=== PATIENT | female | born 2000 | race Caucasian/White ===

== ENCOUNTER → 2022-02-12 | Outpatient (CLI) | payer OTHER, SELFPAY ==
[2022-02-12 17:28] LABS: Absolute Lymphocyte Count 1.78 X10^3/uL (0.83-4.51); Absolute Neutrophil Count 6.9 X10^3/uL (2.0-7.7); Basophil# 0.02 X10^3/uL; Basophil% 0.2 % (0-1); Eosinophils% 2.1 % (0-5); Hematocrit 32.3 % (37-47); Hemoglobin 11.6 g/dL (12.0-15.0); Lymphocyte # 1.78 X10^3/ul (0.83-4.51); Lymphocyte % 18.8 % (19-41); Mean Corp Hgb Conc 35.9 g/dL (32-36); Mean Platelet Vol. 10.4 fl (6.2-12.0); Monocyte# 0.52 X10^3/uL; Monocyte% 5.5 % (0-10); NRBC Flagged by Analyzer 0 % (0-5); Neutrophil # 6.87 X10^3/uL (2.7-7.7); Neutrophil % 72.8 % (47-70); Platelet Count 228 K/mm3 (150-450); RBC Distribution Width CV 12.8 % (11.6-14.6); RBC Distribution Width SD 41.6 fl (35.1-43.9); Red Blood Count 3.63 M/mm3 (4.2-5.4); White Blood Count 9.5 K/mm3 (4.4-11.0)
[2022-02-12 20:50] LABS: HIV - WCH Non-Reactive (Nonreactive); Hepatitis B Surface Antigen Non-Reactive (Nonreactive); Hepatitis C Antibody Non-Reactive (Nonreactive); Rubella IgG Reactive (Nonreactive); Syphilis Antibodies Non-reactive
[2022-02-12 21:59] LABS: Chlamydia Trachomatis by PCR Negative (Negative); Neisserai gonorrhoeae by PCR Negative (Negative); Probe Check PASS; Sample Adequacy Control PASS; Specimen Processing Control PASS
[2022-02-14 16:26] LABS: V-Zoster IgG (Immunity) 1446 index (Immune >165)
[2022-02-21 21:08] LABS: HPV Reflexed? NOT INDICATED
== END | disposition home or self-care (01) ==
LOC: WOBLAB 17:06
PROVIDERS: Visit Provider Student in an Organized Health Care Education/Training Program
DX: Z34.81 Encounter for supervision of other normal pregnancy, first trimester (principal)
CPT/HCPCS: 36415; 85025; 86703; 86762; 86780; 86787; 86803; 87086; 87088; 87340; 87491; 87591; 88175; G0145

== ENCOUNTER → 2022-03-15 | Outpatient (CLI) | payer OTHER, SELFPAY ==
[2022-03-15 10:14] LABS: Hematocrit 34.8 % (37-47); Hemoglobin 11.6 g/dL (12.0-15.0); Mean Corp Hgb Conc 33.3 g/dL (32-36); Mean Corpuscular Hgb 31.4 pg (27.0-32.0); Mean Corpuscular Volume 94.1 fL (81-99); Mean Platelet Vol. 10.9 fl (6.2-12.0); Platelet Count 213 K/mm3 (150-450); RBC Distribution Width CV 13.2 % (11.6-14.6); RBC Distribution Width SD 45.1 fl (35.1-43.9); White Blood Count 9.2 K/mm3 (4.4-11.0)
[2022-03-15 10:45] LABS: Glucose Challenge Gest 1H 50g 107 mg/dL (70-140)
== END | disposition home or self-care (01) ==
PROVIDERS: Visit Provider Student in an Organized Health Care Education/Training Program
DX: Z34.82 Encounter for supervision of other normal pregnancy, second trimester (principal)
CPT/HCPCS: 36415; 82950; 85027

== ENCOUNTER → 2022-05-01 | Outpatient (CLI) | payer SELFPAY ==
--- NOTE | 2022-05-01 14:49 | VDLE_ITS ---
Reason For Study: Pain Procedure LEFT This is a venous duplex using B-mode, color GSV is normal. flow and spectral Doppler. CFV is compressible, spontaneous, phasic, Exam performed in department. competent, and demonstrates normal A preliminary report was called and/or faxed augmentation. to Dr. Bernice Lazaro. FV is compressible, spontaneous, phasic, competent and demonstrates normal augmentation. POP V is compressible, spontaneous, phasic, competent and demonstrates normal augmentation. T/P Trunk is compressible. PTV is compressible. LT PerV is compressible. Thrombus filled varicose veins noted at the knee. VL/Venous Duplex US, Unilateral Interpretation Summary Acute superficial vein thrombosis is noted in left leg varicose veins Deep veins of the left lower extremity are patent and compressible segmentally. There is no evidence of left lower extremity deep vein thrombosis. The left great saphenous vein audrey ears patent and compressible segmentally. Ordering Physician: Bernice Lazaro Referring Physician: Yennifer Samson Performed By: Julia Chaidez RVT
== END | disposition home or self-care (01) ==
PROVIDERS: PCP Nurse Practitioner Family; Visit Provider Student in an Organized Health Care Education/Training Program
DX: I83.812 Varicose veins of left lower extremity with pain (principal)
CPT/HCPCS: 93971

== ENCOUNTER → 2022-06-03 | Outpatient (CLI) | payer OTHER, SELFPAY ==
[2022-06-03 15:38] LABS: Absolute Lymphocyte Count 1.48 X10^3/uL (0.83-4.51); Absolute Neutrophil Count 8.4 X10^3/uL (2.0-7.7); Basophil# 0.03 X10^3/uL; Basophil% 0.3 % (0-1); Eosinophil# 0.09 X10^3/uL; Eosinophils% 0.8 % (0-5); Hematocrit 33.9 % (37-47); Hemoglobin 11.2 g/dL (12.0-15.0); Lymphocyte # 1.48 X10^3/ul (0.83-4.51); Lymphocyte % 13.8 % (19-41); Mean Corpuscular Hgb 30.6 pg (27.0-32.0); Mean Corpuscular Volume 92.6 fL (81-99); Mean Platelet Vol. 10.5 fl (6.2-12.0); Monocyte# 0.71 X10^3/uL; Monocyte% 6.6 % (0-10); NRBC Flagged by Analyzer 0 % (0-5); Neutrophil # 8.38 X10^3/uL (2.7-7.7); Neutrophil % 77.9 % (47-70); Platelet Count 228 K/mm3 (150-450); RBC Distribution Width SD 43.7 fl (35.1-43.9); Red Blood Count 3.66 M/mm3 (4.2-5.4); White Blood Count 10.8 K/mm3 (4.4-11.0)
[2022-06-03 16:08] LABS: Syphilis Antibodies Non-reactive
== END | disposition home or self-care (01) ==
PROVIDERS: PCP Nurse Practitioner Family; Visit Provider Student in an Organized Health Care Education/Training Program
DX: Z34.83 Encounter for supervision of other normal pregnancy, third trimester (principal); Z36.85 Encounter for antenatal screening for Streptococcus B
CPT/HCPCS: 36415; 85025; 86780; 87081

== ENCOUNTER 2022-06-22 04:32 | Inpatient (IN) | payer SELFPAY, OTHER ==
[2022-06-22] VITALS (19 sets, daily range): BP systolic 99–127; BP diastolic 48–64; PULSE 64–90; RESP 16; TEMP 36.3–37.2; O2SAT 97–100; BMI 27.8
[2022-06-22 05:05] LABS: Absolute Neutrophil Count 8.4 X10^3/uL (2.0-7.7); Basophil# 0.03 X10^3/uL; Basophil% 0.3 % (0-1); Eosinophil# 0.06 X10^3/uL; Eosinophils% 0.6 % (0-5); Hemoglobin 11.8 g/dL (12.0-15.0); Lymphocyte % 12.3 % (19-41); Mean Corp Hgb Conc 32.8 g/dL (32-36); Mean Corpuscular Hgb 30.5 pg (27.0-32.0); Mean Platelet Vol. 10.8 fl (6.2-12.0); Monocyte# 0.63 X10^3/uL; NRBC Flagged by Analyzer 0 % (0-5); Neutrophil # 8.44 X10^3/uL (2.7-7.7); Neutrophil % 80.1 % (47-70); Platelet Count 195 K/mm3 (150-450); RBC Distribution Width CV 13.2 % (11.6-14.6); RBC Distribution Width SD 44.4 fl (35.1-43.9); Red Blood Count 3.87 M/mm3 (4.2-5.4); White Blood Count 10.5 K/mm3 (4.4-11.0)
[2022-06-22] MEDS: Lactated Ringers 1,000 ML 50 ML IV (05:06)
[2022-06-22 05:45] LABS: Syphilis Antibodies Non-reactive
[2022-06-22] MEDS: Oxytocin 10 UNITS/ML Vial IM (06:52)
[2022-06-22] MEDS: Oxytocin 15 Units/NS 250ml 15 UNITS/250 ML IV.SOLN 83 UNITS IV (06:52)
--- NOTE | 2022-06-22 07:09 | HP.PCM.OB_ITS ---
HPI - General General Date of Admission: 06/22/22 HPI Narrative MARKUS JACKSON, is a 21 y/o @ 39 weeks 3 days who presents to L&D in active labor. 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 She has a history or prior vaginal delivery in [place] at 34 weeks. Maternal Data Information JIN Calculator Estimated Delivery Date Method Current WG Current Estimate 06/27/22 LMP (Certain) 39w 2d Final JIN Source: LMP Gestational age: 39 weeks 2 days PFSH PFS Medical History (Updated 06/22/22 @ 07:[address] Mone Serna DO) Superficial varicosities Home Medications aspirin 81 mg capsule 81 mg PO DAILY 06/22/22 [History Last Taken 06/21/22] [id number] 1 mg tablet 1 tab PO DAILY 06/22/22 [History Last Taken 06/21/22] Allergy/AdvReac Type Severity Reaction Status Date / Time No Known Allergies Allergy Verified 06/22/22 04:41 no significant family history Surgical History (Updated 06/22/22 @ 07:[address] Mone Serna DO) H/O cardiac radiofrequency ablation History of surgery Social History Smoking Status: Never smoker Prior Cardiac Testing/Procedures Prior Cardiac Testing/Procedures: Echocardiogram History 2 Elective abortions 0 Hx Para 1 Spontaneous abortions 0 Hx # Term Pregnancies 0 Ectopic pregnancies 0 Hx # Pregnancies 1 Multiple births 0 # of living children 1 Past Pregnancies Del. Date Name GA/Weeks Outcome Route Bth Weight Infant Gen Labor Lgth Anesthesia Del Locatn Provider FOB Unknown Linda 34 live - 5lbs 8oz Female NST FHR Rate Baby A Baseline: 125 Variability:: Moderate Accelerations:: 15 x 15 Decelerations:: None FHR Category:: Category I ROS Constitutional Constitutional: Denies change in weight, fatigue, fever(s), headache(s), poor appetite or weakness Eyes Eyes: Denies blurry vision, change in vision, seeing flashes or spots in vision ENT HEENT: Denies dizziness, headache(s), loss taste/smell or sore throat Cardiovascular Cardiovascular: Denies chest pain, dizziness, dyspnea, irregular heart rhythm, leg edema, palpitations, rapid heart rate or vomiting Respiratory/Chest Respiratory/Chest: Denies chest tightness, cough, dyspnea or breast pain Gastrointestinal Gastrointestinal: Denies abdominal pain, anorexia, constipation, cramping, diarrhea, hemorrhoids, vomiting or weight changes Genitourinary Genitourinary: Denies dysuria, flank pain, genital lesions, genital pain, urinary frequency or urinary urgency Musculoskeletal Musculoskeletal: Denies back pain, difficulty walking, joint pain, limited range of motion, muscle cramps or numbness Integumentary Integumentary: Denies lesions or unusual bruising Neurologic Neurologic: Denies abnormal movements, abnormal speech, dizziness, numbness, seizure-like activity or syncope Psychiatric Psychiatric: Denies anxiety, behavioral changes, change in appetite, change in libido, cognitive impairment, confusion, depression, difficulty concentrating, hallucinations or suicidal thoughts Endocrine Endocrinology: Denies excessive sweating, polydipsia or polyuria Hematologic/Lymphatic Hematologic/Lymphatic: Denies easy bleeding, easy bruising or lymphadenopathy Allergic/Immunologic Allergic/Immunologic: Denies itchy eyes, lip swelling, seasonal rhinorrhea, rhinitis, throat swelling, tongue swelling, eczemia, wheezing or asthma Vital Signs Vital Signs Vital Signs: 06/22/22 04:28 06/22/22 04:28 06/22/22 04:29 Temperature Temperature Source Pulse Rate 64 Blood Pressure 114/56 L BP Systolic 114 BP Diastolic 56 Pulse Ox 99 06/22/22 04:29 06/22/22 04:29 06/22/22 04:29 Temperature 97.4 F L Temperature Source Temporal Pulse Rate 72 Blood Pressure BP Systolic BP Diastolic Pulse Ox 06/22/22 05:49 06/22/22 05:50 06/22/22 05:50 Temperature Temperature Source Temporal Pulse Rate 68 Blood Pressure 99/54 L BP Systolic 99 BP Diastolic 54 Pulse Ox 06/22/22 05:49 06/22/22 05:49 06/22/22 07:05 Temperature 97.3 F L Temperature Source Pulse Rate Blood Pressure 120/62 BP Systolic 120 BP Diastolic 62 Pulse Ox 97 06/22/22 07:05 Temperature Temperature Source Pulse Rate 78 Blood Pressure BP Systolic BP Diastolic Pulse Ox Weight Weight: 156 lb 15.506 oz Body Mass Index (BMI) 27.8 Physical Exam Const alert, oriented x3, no apparent distress and healthy appearing General Appearance: cooperative; Negative for anxious HEENT normocephalic Face and Sinus: normal facial exam Eyes EOMs intact bilaterally and no scleral icterus General Eye: normal appearance of both eyes Neck full ROM and supple Lymph Lymphatic: no lymphadenopathy noted Chest Chest: abnormal inspection of the chest Resp normal respiratory effort Effort and Inspection: able to speak in complete sentences Cardio regular rate GI soft to palpation and non-tender Inspection: gravid Palpation: soft; Negative for tender external exam normal Amniotic Fluid: ROM+plus Back/Spine no CVA tenderness Extremity normal to inspection, full ROM and no clubbing, cyanosis or edema General Extremity: Negative for calf tenderness or edema Skin Lesions: no lesions Rashes: no rashes Psych mental status grossly normal Labs Labs Labs: Blood Type A NEGATIVE Antibody Screen NEGATIVE Hct 36.0 % (37-47) L Hgb 11.8 g/dL (12.0-15.0) L Syphilis Total Ab Non-reactive VZV IgG Antibody 1446 index (Immune >165) Rubella IgG Antibody Reactive (Nonreactive) Hep Bs Antigen Non-Reactive (Nonreactive) HIV 1&2 Antibody Non-Reactive (Nonreactive) Glucose 1 Hr 50 gm 107 mg/dL (70-140) Assessment & Plan (1) History of surgery: COMMENT: appendectomy (2) H/O cardiac radiofrequency ablation: COMMENT: for SVT in 2016 (3) Superficial varicosities: (4) Active labor at term: PLAN: Plan Patient presents IAL, plan expectant management for , pitocin/AROM PRN if needed. Pain management: none . GBS negative, . Management of any complications: none I have reviewed the [facility] and made any clinically relevant updates.
--- NOTE | 2022-06-22 07:18 | OP.PCM_ITS ---
Assessment & Plan (1) Active labor at term: Maternal Data Information JIN Calculator Estimated Delivery Date Method Current WG Current Estimate 06/27/22 LMP (Certain) 39w 2d Final JIN Source: LMP Gestational age: 39 weeks 2 days Vaginal Delivery Maternal Presentation Maternal Presentation: Active Labor Operative Information Date of Procedure: 06/22/22 Pre-Operative Diagnosis: 21 y/o @ 39 weeks 2 days, active labor Post-Operative Diagnosis: 21 y/o @ 39 weeks 2 days, active labor Surgery / Procedure Performed: Spontaneous Vaginal Delivery Type of Anesthesia: None Estimated Blood Loss: 100cc Time of Delivery: 06:44 Findings Description of Procedure: Patient began pushing and delivered the head in the MARY presentation. The head was delivered atraumatically and a loose nuchal cord ?1 was identified and easily reduced over the infant's head. The anterior and posterior shoulders delivered without complication followed by the rest of the infant and the was placed on the maternal abdomen. Delayed cord clamping was employed for approximately 60 seconds. Cord was clamped and cut and gentle traction was applied to the cord and the placenta delivered spontaneously immediately following it was noted to be intact with three-vessel cord. The perineum and vagina were inspected and noted to have a 1st degree perineal laceration. the patient was injected with lidocaine and the repair was performed using a 2-0 vicryl. EBL was 100 cc. Patient and tolerated delivery well. Baby Boy Austin Presentation: Vertex Amniotic Membrane Rupture Type: Artificial Amniotic Fluid Description: Clear Placental Delivery Description: Spontaneous Placenta Disposition: [facility] Cord Vessel Description: 3 Vessels Cord Entanglement: Around neck x 1, loose Nuchal Cord Compression: Without compression Infant A Gender: Male (1 minute): 8 (5 minute): 9 Delayed Cord Clamping: Yes Post Vaginal Delivery Medications Given After Delivery: IV Pitocin and IM Pitocin Episiotomy Description: None Laceration: 1st degree Complication Complications: None Multi Select Codes Urinary/Genital Urinary/Genital CPT Codes: 90852 Vaginal Delivery [facility]
--- NOTE | 2022-06-22 07:21 | PCM.DC ---
Discharge Instructions Diet Discharge Diet: No restrictions Activity Discharge Activity: Return to Normal Activity, May Not Drive (while taking narcotic pain medications.) and May Shower May resume sexual activity in: 4-6 weeks Dressing / Incision Call your doctor if your incision/area has: Continuous Slow Oozing, Sudden Increased Bleeding, Increased Pain/ Swelling, Increased Redness and Foul Smelling Discharge Follow Up Care Please Follow Up With: Bernice Lazaro DO When: Call to make an appointment with your doctor in 6 weeks. Test Results: Test results from this visit will be discussed in further detail at your follow-up appointment, if applicable. Discharge Plan Admission Admit Date/Time: 06/22/22 04:32 Attending Provider: Mone Serna Primary Care Provider: Yennifer Samson NP Discharge Orders/Prescriptions Prescriptions: No Action 1 mg Tablet 1 tab PO DAILY aspirin 81 mg Capsule 81 mg PO DAILY Referrals / Follow Up: Yennifer Samson NP, [employer] [Primary Care Provider] -
[2022-06-22] MEDS: Acetaminophen 500 MG Tablet 1000 MG PO (13:19)
[2022-06-23 00:01] VITALS: BP 117/70; PULSE 69; RESP 16; TEMP 36.6
[2022-06-23 04:32] VITALS: BP 121/60; PULSE 74; RESP 16; TEMP 36.8
[2022-06-23 08:39] VITALS: BP 119/53; PULSE 60; RESP 16; TEMP 36.3; O2SAT 99
--- NOTE | 2022-06-23 09:48 | PCM.PN.OB ---
Subjective Subjective Patient doing well without complaints. Tolerating PO. Ambulating and voiding without difficulty. Feeding well. Denies chest pain, shortness of breath, calf pain/swelling, fevers, chills, lightheadedness. Her only complaint is pain at her superficial clot behind her inner left knee. She states that it really has not changed. Objective Data Objective Data Vital Signs: Vital Signs Temp Pulse Resp BP Pulse Ox O2 Del Method 97.4 F L 60 16 119/53 L 99 Room Air 06/23/22 08:39 06/23/22 08:39 06/23/22 08:39 06/23/22 08:39 06/23/22 08:39 06/23/22 08:39 Oxygen Delivery Method Room Air Weight: 156 lb 15.506 oz Body Mass Index (BMI) 27.8 Intake & Output: Intake and Output for Last 24 Hours 06/21/22 06/22/22 06/23/22 23:59 23:59 23:59 Intake Total 251.67 / 251.67 Output Total 1300 / 1300 Balance -1048.33 / -1048.33 Lab / Micro Data Result Diagrams: 06/22/22 04:50 ROS Constitutional Constitutional: Denies chills, fatigue, fever(s), poor appetite or weakness Eyes Eyes: Denies blurry vision, change in vision, seeing flashes or spots in vision ENT HEENT: Denies dizziness, headache(s), loss taste/smell or sore throat Cardiovascular Cardiovascular: Denies chest pain, dizziness, dyspnea, irregular heart rhythm, palpitations or rapid heart rate Respiratory/Chest Respiratory/Chest: Denies chest tightness, cough, dyspnea or breast pain Gastrointestinal Gastrointestinal: Denies abdominal pain, constipation or vomiting Genitourinary Genitourinary: Denies dysuria or flank pain Musculoskeletal Musculoskeletal: Denies difficulty walking, joint pain, limited range of motion or numbness Neurologic Neurologic: Denies abnormal movements, abnormal speech, dizziness, numbness, seizure-like activity or syncope Psychiatric Psychiatric: Denies anxiety, behavioral changes, change in appetite, confusion, depression or suicidal thoughts Physical Exam Const alert, oriented x3 and no apparent distress General Appearance: cooperative and comfortable Resp normal respiratory effort Cardio regular rate GI normal to inspection, nondistended, normoactive bowel sounds GI Narrative: uterus is firm below umbilicus Palpation: soft Back/Spine no CVA tenderness and thoraco-lumbar ROM normal Extremity normal to inspection, no clubbing, cyanosis or edema, no calf tenderness and no pedal edema Psych mental status grossly normal, thought process normal, cooperative, affect normal, speech normal, activity/motor behavior normal, denies homicidal ideation and denies suicidal ideation Assessment & Plan (1) History of surgery: COMMENT: appendectomy (2) Superficial varicosities: (3) H/O cardiac radiofrequency ablation: COMMENT: for SVT in 2016 PLAN: Plan s/p PPD # 1 1. routine post delivery care 2. breast feeding- support given 3. rh positive 4. rubella immune 5. continue baby asa and heat at the superficial clot site. 6. dc to home and follow up with Dr. Lazaro in 6 weeks or sooner as needed
[2022-06-23 14:45] VITALS: BP 116/56; PULSE 79; RESP 16; TEMP 36.4; O2SAT 98
== END 2022-06-23 15:37 | disposition home or self-care (01) | DRG 807 ==
LOC: WPOUT 04:32 → WP 04:32
PROVIDERS: Admitting Provider Obstetrics & Gynecology; PCP Nurse Practitioner Family; Visit Provider Obstetrics & Gynecology
DX: O70.0 First degree perineal laceration during delivery (principal); Z37.0 Single live birth; I83.90 Asymptomatic varicose veins of unspecified lower extremity; O69.2XX0 Labor and delivery complicated by other cord entanglement, with compression, not applicable or unspecified; O69.81X0 Labor and delivery complicated by cord around neck, without compression, not applicable or unspecified; Z79.82 Long term (current) use of aspirin; Z3A.39 39 weeks gestation of pregnancy
CPT/HCPCS: 59025; 59050; 85025; 86780; 86850; 86900; 86901; 99221; J7120; G0378

== ENCOUNTER → 2023-01-27 | Outpatient (CLI) | payer SELFPAY, OTHER | END | disposition home or self-care (01) | PROVIDERS: PCP Nurse Practitioner Family; Visit Provider Advanced Practice Midwife | DX: O09.90 Supervision of high risk pregnancy, unspecified, unspecified trimester (principal); Z3A.00 Weeks of gestation of pregnancy not specified | CPT/HCPCS: 87086; 87088; 87491; 87591 ==

== ENCOUNTER → 2023-02-18 | Outpatient (CLI) | payer SELFPAY, OTHER ==
--- NOTE | 2023-02-18 07:46 | US_ITS ---
EXAM: US SECOND OR THIRD TRIMESTER , TRANSABDOMINAL CLINICAL INDICATION: Anatomy US TECHNIQUE: Transabdominal obstetrical ultrasound of the maternal pelvis and a second or third trimester with image documentation. COMPARISON: No relevant prior studies available. FINDINGS: FETUS: Single fetus. SA weight is 273 g. HEART RATE: cardiac rate is 157 bpm. PRESENTATION: Cephalic presentation. PLACENTA: Posterior placenta. No placenta previa. No abruption. AMNIOTIC FLUID: Amniotic fluid volume is normal. ANATOMY: Facial anatomy not well seen. Normal intracranial structures. Facial structures not well seen due to position. Normal four-chamber heart, normal diaphragm, normal stomach, normal abdominal wall, normal cord insertion, normal three-vessel cord, normal kidneys, normal bladder. Spinal structures appear normal. No abnormality of the upper or lower extremities. BIOMETRICS GESTATIONAL AGE: Clinical gestational age is 19 weeks 5 days. Gestational age by measurements is 19 weeks 3 days. JIN: Clinical JIN is July 10, 2023. EFW: 16th percentile for the estimated weight. BPD: Biparietal diameter is 4.5 cm. HC: Head circumference is 17.1 cm. AC: Abdominal circumference is 13.9 cm. FL: Femur length is 2.8 cm. MATERNAL: UTERUS: Normal. No myometrial mass. CERVIX: Cervix is closed measuring 3.8 cm in length. ADNEXA: Normal. No adnexal masses. FREE FLUID: None. US/OB Anatomy w/ Transvaginal IMPRESSION: Single live second trimester intrauterine gestation. No anatomical abnormalities are identified. Electronically Signed: Lazarus Mcneill MD at 16:59 EST ,
[2023-02-18 09:38] LABS: Absolute Lymphocyte Count 1.36 X10^3/uL (0.83-4.51); Absolute Neutrophil Count 7.5 X10^3/uL (2.0-7.7); Basophil# 0.02 X10^3/uL; Basophil% 0.2 % (0-1); Eosinophil# 0.16 X10^3/uL; Eosinophils% 1.7 % (0-5); Hematocrit 33.7 % (37-47); Hemoglobin 11.2 g/dL (12.0-15.0); Lymphocyte # 1.36 X10^3/ul (0.83-4.51); Lymphocyte % 14.4 % (19-41); Mean Corp Hgb Conc 33.2 g/dL (32-36); Mean Corpuscular Hgb 30.6 pg (27.0-32.0); Mean Corpuscular Volume 92.1 fL (81-99); Mean Platelet Vol. 10.5 fl (6.2-12.0); Monocyte# 0.43 X10^3/uL; Monocyte% 4.5 % (0-10); NRBC Flagged by Analyzer 0 % (0-5); Neutrophil # 7.45 X10^3/uL (2.7-7.7); Neutrophil % 78.7 % (47-70); Platelet Count 196 K/mm3 (150-450); RBC Distribution Width CV 13.5 % (11.6-14.6); RBC Distribution Width SD 44.9 fl (35.1-43.9); Red Blood Count 3.66 M/mm3 (4.2-5.4); White Blood Count 9.5 K/mm3 (4.4-11.0)
[2023-02-18 10:46] LABS: HIV - WCH Non-Reactive (Nonreactive); Hepatitis B Surface Antigen Non-Reactive (Nonreactive); Hepatitis C Antibody Non-Reactive (Nonreactive); Rubella IgG Reactive (Nonreactive); Syphilis Antibodies Non-reactive
== END | disposition home or self-care (01) ==
PROVIDERS: PCP Nurse Practitioner Family; Referring Provider Advanced Practice Midwife; Visit Provider Advanced Practice Midwife
DX: O09.90 Supervision of high risk pregnancy, unspecified, unspecified trimester (principal)
CPT/HCPCS: 36415; 76805; 76817; 85025; 86703; 86762; 86780; 86803; 86850; 86900; 86901; 87340

== ENCOUNTER 2023-04-08 22:31 | Emergency (ER) | payer OTHER, SELFPAY ==
[2023-04-08 22:32] VITALS: BP 116/69; PULSE 87; RESP 16; TEMP 36.3; O2SAT 100; BMI 25.4
[2023-04-08 22:35] VITALS: BP 116/69; PULSE 87; RESP 16; TEMP 36.3; O2SAT 100
--- NOTE | 2023-04-08 22:42 | US_ITS ---
STUDY: VENOUS DOPPLER ULTRASOUND - LEFT LOWER EXTREMITY REASON FOR EXAM: Female, 22 years old. LT MEDIAL LEG REDNESS PAIN AND SWELLING TECHNIQUE: Ultrasound evaluation of the deep vein system to include alvarado-scale imaging and compression was performed. Alvarado-scale imaging and Doppler sonographic evaluation, including duplex spectral analysis and qualitative color flow sonography, was performed. COMPARISON: None. FINDINGS: Common Femoral Vein: Normal compression, spontaneity and augmentation. Normal color Doppler. Common Femoral Vein/Greater Saphenous Junction: Normal compression, spontaneity and augmentation. Normal color Doppler. Deep Femoral Vein: Normal compression, spontaneity and augmentation. Normal color Doppler. Femoral Proximal: Normal compression, spontaneity and augmentation. Normal color Doppler. Femoral Middle: Normal compression, spontaneity and augmentation. Normal color Doppler. Femoral Distal: Normal compression, spontaneity and augmentation. Normal color Doppler. Popliteal Vein: Normal compression, spontaneity and augmentation. Normal color Doppler. Posterior Tibial Vein: Normal compression, spontaneity and augmentation. Normal color Doppler. Peroneal Vein: Normal compression, spontaneity and augmentation. Normal color Doppler. There is no demonstrated deep venous thrombosis. Along the medial aspect of the left knee region there is diffuse superficial soft tissue swelling with the area of superficial vein revealing thrombosis suggestive of thrombophlebitis. US/Venous Duplex Imag/Limited/Uni IMPRESSION: No ultrasonographic evidence of deep venous thrombosis involving the left lower extremity. Superficial thrombophlebitis involving the medial aspect of the left knee. Electronically Signed: Citlalli Padilla MD at 23:39 EST ,
--- OUTSIDE RECORDS SUMMARY | 2023-04-08 22:43 | XMS RPT_ITS | CCD ---
Author Name Unknown Address [address] [place] [address] Organization [facility] Care Team Providers Care Rn Transport Name Role Phone TOMMY SHARP Consulting Unavailable KAMILLA ALTMAN MD Admitting Unavailable KAMILLA ALTMAN MD Attending Unavailable AKMILLA ALTMAN MD Primary Care Unavailable PROVIDER, UNKNOWN Consulting Unavailable PROVIDER, UNKNOWN Consulting Unavailable PROVIDER, UNKNOWN Consulting Unavailable JEROD ALTMAN Admitting Unavailable JEROD ALTMAN Attending Unavailable JEROD ALTMAN Primary Care Unavailable HANNAH SHARPRY T Consulting Unavailable PROVIDER, UNKNOWN Consulting Unavailable PROVIDER, UNKNOWN Consulting Unavailable PROVIDER, UNKNOWN Consulting Unavailable NALINI SHARPCHARY Paulino Admitting Unavailable LILA TOMMY Paulino Attending Unavailable LILA TOMMY T Primary Care Unavailable SHARP, TOMMY T Consulting Unavailable PROVIDER, UNKNOWN Consulting Unavailable PROVIDER, UNKNOWN Consulting Unavailable PROVIDER, UNKNOWN Consulting Unavailable LOUIS AVILES, JAZZMINE Najera Unavailable [phone] DIANNE GAMBLE Unavailable HILARIO Unavailable Unavailable ORTHOPEDICS, GENERAL Unavailable Unavailable Natalia Mckay RN Unavailable Unavailable TOMMY SHARP MD Unavailable [phone] JHON ADAMES MD Unavailable [phone] HANS DUMONT RN Unavailable Unavailable Stacy Altman Unavailable Unavailable He Goodrich Unavailable Unavailable DEMAR GOODRICHISTIN Unavailable Unavailable Deny Suero Unavailable Unavailable Marielle RN, Chcia Unavailable Unavaila tiesha Sanders RN, Augusta Unavailable Unavailable Unavailable Unavailable Medications Current Medications Medication Drug Class(es) Dates Sig (Normalized) Sig (Original) docusate sodium 100 mg oral capsule (1 source) Start: 04-27-2020 take 1 capsule by mouth twice daily as needed Colace 100 MG Oral Capsule ; 1 (one) Capsule Capsule two times daily, as needed for 0 days Quantity: 60 {Capsule} Refills: 1 Ordered: 27-Apr-2020 MIGUEL Mckay Start: 27-Apr-2020 Comments: Medication taken as needed. Completed/Discontinued Medications Medication Drug Class(es) Dates Sig (Normalized) Sig (Original) amoxicillin 500 mg oral capsule (1 source) Penicillin-class Antibacterial Start: 04-03-2018 End: 04-10-2018 take 1 capsule by mouth three times daily Amoxicillin 500 MG Oral Capsule ; 1 (one) Capsule three times daily for 7 days Quantity: 21 {Capsule} Refills: 0 Ordered: 01-Mar-2020 MD KOFI SHARP Start: 03-Apr-2018 End: 10-Apr-2018 Status: Inactive Comments: medication to be dispensed in office Problems Active Problems Problem Classification Problem Date Documented Date Episodic/Chronic Administrative/socia l admission (4 sources) Patient encounter status; Translations: [Counseling, unspecified] 12-22-2020 Episodic Cardiac dysrhythmias (2 sources) Supraventricular tachycardia; Translations: [Supraventricular tachycardia] Onset: 12-17-2014 12-22-2020 Chronic Past or Other Problems Problem Classification Problem Date Documented Da te Episodic/Chronic Early or threatened labor (3 sources) labor without delivery, third trimester; Translations: [ labor without delivery, third trimester] Onset: 10-17-2020 Episodic Hemorrhage during ; abruptio placenta; placenta previa (3 sources) Antepartum hemorrhage, unspecified, third trimester; Translations: [Antepartum hemorrhage, unspecified, third trimester] Onset: 09-08-2020 Episodic Residual codes; unclassified (1 source) 34 weeks gestation of ; Translations: [34 weeks gestation of ] Onset: 10-17-2020 Episodic Residual codes; unclassified (1 source) 29 weeks gestation of ; Translations: [29 weeks gestation of ] Onset: 09-08-2020 Episodic Unclassified (1 source) Post- visit - The patient is here for a scheduled follow-up 6 week visit following a vaginal delivery (at [place].). Note for Post- visit : delivered at 34 weeks.Trouble with constipation. Using colase but questions about lily lax. 11-30-2020 Unclassified (1 source) OB VISIT - The patient is a primip and has an EDC of 11-25-20. 10-09-2020 Unclassified (1 source) OB VISIT - The patient is a primip and has an EDC of 11-25-20. 09-11-2020 Unclassified (1 source) OB VISIT - The patient is a primip, has a LNMP of 02/19/2020 and has an EDC of 11/25/2020. Note for OB VISIT : No Contractions. Not sure if she has felt the Baby Move 07-10-2020 Unclassified (1 source) OB VISIT - The patient is a primip, has a LNMP of 02/19/2020 and has an EDC of 11/25/2020. Note for OB VISIT : No nausea and is feeling well. 06-12-2020 Unclassified (1 source) OB VISIT - The patient is a primip, has a LNMP of 02-19-20 and has an EDC of 11-25-20. 05-15-2020 Unclassified (1 source) Skin changes - Note for Skin changes : Patient has a lump on her right distal neck that she states she has had as long as I can remember. Patient c/o lump starting to hurt yesterday and it is hard and feels it is larger.. 04-03-2018 Unclassified (1 source) !Patient notification of lab results - Vamshi. The test(s) that you had done were/was an MRI. Your tests showed the following abnormalities: broad based disc bulge to the right with mild foraminal impingement . Please follow up as scheduled and let us know if your symptoms do not improve (We can refer to a customer resource specialist). 12-02-2017 Unclassified (1 source) Foreign body - Date of occurrence: (01/04/16). Note for Foreign body : Has straight pin stuck in right upper arm. Part of pin broke off, did not find part that broke off. C/o pain. 01-05-2016 Unclassified (1 source) Leg pain - The onset of the leg pain has been gradual and has been occurring for 9 months. The course has been gradually worsening. The leg pain involves the right leg. The leg pain is described as being located in the lateral thigh (and knee). There has been associated difficulty with sports activities, swelling in the leg (around the knee and thigh) and weakness. Note for Leg pain : Has had pain since heart cath in 01/2015. 11-06-2015 Unclassified (1 source) Immunization - Adacel was given. An immunization information sheet was provided. An IPV immunization was given. An immunization information sheet was provided. An MMR was given. An immunization information sheet was provided. 06-18-2013 Unclassified (1 source) Neck Mass - Symptoms include neck mass (SMALL LUMP ON RIGHT NECK). Onset was 1 month(s) ago. Note for Neck Mass : . 11-08-2010 Results Test Name Value Interpretation Reference Range Facil ity Vital Signs Date Time Vital Sign Value Performing Clinician Faci lity 12-22-2020 13:12-0400 Body height 162.56 cm Augusta Sanders [facility] 12-22-2020 13:12-0400 Body mass index (BMI) [Ratio] 27.02 kg/m2 Augusta Sanders RN [facility]. 12-22-2020 13:12-0400 Body surface area Derived from formula 1.77 m2 Augusta Sanders RN [facility].; [facility]. 12-22-2020 13:12-0400 Body temperature 98.1 [degF] Augusta [facility] Encounters Encounter Date Encounter Type Care Provider Facility Start: 05-07-2021 End: 05-07-2021 Historical Summary JAZZMINE RAMIREZ-Yasir [facility] Start: 05-04-2021 End: 05-04-2021 ambulatory [facility] Start: 03-19-2021 End: 03-19-2021 Transition of Care JAZZMINE RAMIREZ-Yasir [facility] Start: 12-22-2020 End: 12-22-2020 Office outpatient visit 10 minutes JAZZMINE HOFSTETTER STOGY MAKER-C Work Phone: [facility] [employer]. Start: 11-30-2020 End: 11-30-2020 Office outpatient visit 10 minutes JAZZMINE HOFSTETTER STOGY MAKER-C Work Phone: [facility] [employer]. Start: 10-17-2020 End: 10-17-2020 ambulatory [facility] Start: 10-09-2020 End: 10-09-2020 Office outpatient visit 10 minutes JAZZMINE HOFSTETTER STOGY MAKER-C Work Phone: [facility] Start: 09-11-2020 End: 09-11-2020 Office outpatient visit 10 minutes JAZZMINE HOFSTETTER STOGY MAKER-C Work Phone: [facility] Start: 09-08-2020 End: 09-08-2020 ambulatory [facility] Start: 09-08-2020 End: 09-08-2020 Procedure Order JAZZMINE HOFSTETTER STOGY MAKER-C Work Phone: [facility] Start: 08-31-2020 End: 08-31-2020 Lab Only JAZZMINE HOFSTETTER STOGY MAKER-C Work Phone: [facility] Start: 08-14-2020 End: 08-14-2020 Office outpatient visit 10 minutes JAZZMINE HOFSTETTER STOGY MAKER-C Work Phone: [facility] [employer] [facility] Start: 07-10-2020 End: 07-10-2020 Office outpatient visit 10 minutes JAZZMINE HOFSTETTER STOGY MAKER-C Work Phone: [facility] [employer] [facility] [employer] Start: 06-12-2020 End: 06-12-2020 Office outpatient visit 10 minutes JAZZMINE HOFSTETTER STOGY MAKER-C [facility] Start: 05-16-2020 End: 05-17-2020 Historical Summary JAZZMINE MYERS STOGY MAKER-C [facility] Start: 05-15-2020 End: 05-15-2020 Office outpatient visit 40 minutes JAZZMINE MYERS STOGY MAKER-C Work Phone: [facility] [employer] [facility] Start: 03-02-2020 End: 03-02-2020 Office outpatient visit 10 minutes JAZZMINE MYERS STOGY MAKER-C [facility] Start: 04-03-2018 End: 04-03-2018 Office outpatient visit 10 minutes JAZZMINE MYERS STOGY MAKER-C Work Phone: [facility] [employer] [facility] Start: 12-08-2017 End: 12-08-2017 Transition of Care JAZZMINE MYERS STOGY MAKER-C Work Phone: [facility] [employer] [facility] [employer]. Start: 12-02-2017 End: 12-02-2017 Follow-up encounter JAZZMINE MYERS STOGY MAKER-C Work Phone: [facility] [employer]. Start: 11-26-2017 End: 11-26-2017 Patient encounter procedure JAZZMINE MYERS STOGY MAKER-C Work Phone: [facility] [employer] [facility]. Start: 11-26-2017 End: 11-26-2017 Office outpatient visit 15 minutes JAZZMINE CARNEYER STOGY MAKER-C Work Phone: [facility] [employer] [facility]. Start: 01-05-2016 End: 01-05-2016 Office outpatient visit 15 minutes JAZZMINE MYERS STOGY MAKER-C Work Phone: [facility] [employer]. Start: 11-06-2015 End: 11-06-2015 Office outpatient visit 10 minutes JAZZMINE CARNEYER STOGY MAKER-C Work Phone: [facility] [employer] [facility] Start: 02-02-2015 End: 02-02-2015 Results Review JAZZMINE MYERS STOGY MAKER-C Work Phone: [facility] [employer] [facility] Start: 12-21-2014 End: 12-21-2014 Historical Summary JAZZMINE MYERS STOGY MAKER-C [facility] Start: 12-21-2014 End: 12-21-2014 Results Review JAZZMINE MYERS STOGY MAKER-C [facility] Start: 06-18-2013 End: 06-18-2013 Injection/immunization only JAZZMINE YMERS STOGY MAKER-C [facility]: [facility] Start: 11-08-2010 End: 11-08-2010 Patient encounter procedure JAZZMINE MYERS STOGY MAKER-C Work Phone: [facility] [employer] [facility] Start: 11-06-2010 End: 11-06-2010 Historical Summary JAZZMINE MYERS STOGY MAKER-C Work Phone: [facility] [employer] [facility] Procedures Date Procedure Procedure Detail Performing Clinician Start: 05-04-2021 End: 05-04-2021 Screening colonoscopy TOMMY SHARP MD Work Phone: Plan of Treatment Date Care Activity Detail Author Start: 09-08-2020 Us preg uterus after 1st trimest 02/24 gestation [facility] [employer] [facility] [employer] Immunizations Immunization Date Immunization Notes Care Provider Quoc alexandre 06-18-2013 *IMMUNIZATION ADMIN ([id number]) JAZZMINE MYERS STOGY MAKER-C Work Phone: [facility]; [employer] [facility] ALT[facility]. 06-18-2013 measles, mumps and rubella virus vaccine JAZZMINE MYERS STOGY MAKER-C Work Phone: [facility]; [facility] Payers Date Payer Category Payer Unknown [id number] Unknown Social History Date Type Detail Facility Alcohol Use: Alcohol Use: ; N o Alcohol Use. [facility]; [facility] Current Work/Study Status Current Work/St udy Status [facility]; [facility] Tobacco use: Tobacco use: ; N ever smoker. [facility]; [facility] Female [facility]; [facility] Work Phone: Never smoked tobacco [facility]; [facility] Work Phone: Discharge summary note 10-28-2020 Note Date & Type Note Facility 10-28-2020 Note [facility] DISCHARGE SUMMARY NAME ACCOUNT SEX AGE ADMIT DISCHARGE PT MED. RECORD# NUMBER DATE DATE TYPE MARKUS JACKSON [id number] F 10/17/20 10/17/20 2 [id number] ROOM: [facility] DATE OF : 2000 ATTENDING PHYSICIAN: Kamilla [facility] COURSE: This is a 19-year-old primip at 34 and 2 weeks gestation admitted for observation in preparation for transfer to [facility]. She had rupture of membranes at about 4:15 a.m., clear fluid, and onset of contractions every 3 to 4 minutes. Upon arrival at OB, she was 4 cm, 80% effaced, and +1 with contractions every 3 to 4 minutes, which were cszr-gr-[id number] in intensity. She did have clear fluid that appeared to be obvious rupture, as well as a positive AmniSure. The patient had laboratories taken, started on penicillin G, Celestone, and mag sulfate per instructions from Dr. Henry at [facility]. DISCHARGE INSTRUCTIONS/PLAN: Discussed at length with the patient and her , and they are agreeable to being transferred to [place] for further care. Dictated By: Kamilla Altman MD 10/17/20 08:18 JOB #: [id number] Transcribed By: am 10/17/20 16:17 Electronically signed by: Kamilla Altman M.D. 10/28/20 08:15 Page 1 of 1 MANUELMARKUS Discharge Summary [facility] Clinical Note 10-18-2020 Note Date & Type Note Facility 10-18-2020 Note . MICRO - Microbiology PROCEDURE: Group B Strep PCR [*1] SOURCE: Vaginal Rectal BODY SITE: COLLECTED DATE/TIME: 10/17/2020 11:43 EDT RECEIVED DATE/TIME: 10/17/2020 12:38 EDT START DATE/TIME: 10/17/2020 12:38 EDT FREE TEXT SOURCE: FINAL REPORTS Final Report [] Verified Date/Time/Personnel: 10/18/2020 13:27 EDT GBS NEGATIVE. Group B Streptococcus DNA not detected by Real-Time. Polymerase Chain Reaction (PCR). A negative result does not rule out the possibility of Group B Streptococcus False negative results may occur when Group B Streptococcus concentration is below the level of detection of 200 CFU/mL of sample preparation reagent. If the patient has signs or symptoms of infection, other laboratory tests and clinical information should be used to confirm the negative result. This test is not intended to differentiate carriers of Group B Streptococcus from those with Streptococcus disease. Performing Locations *1: This test was performed at: [address], [address] [place] [address] ([place]) Clinical Note 05-17-2020 Note Date & Type Note Facility 05-17-2020 Note . MICRO - Microbiology PROCEDURE: Urine Culture [*1] SOURCE: Urine BODY SITE: COLLECTED DATE/TIME: 05/16/2020 00:43 EDT RECEIVED DATE/TIME: 05/16/2020 07:23 EDT START DATE/TIME: 05/16/2020 07:23 EDT FREE TEXT SOURCE: FINAL REPORTS Final Report [] Verified Date/Time/Personnel: 05/17/2020 11:10 EDT >100,000 organisms per mL Multiple bacterial morphotypes present. Probable Contamination. Suggest recollection if clinically indicated. Performing Locations *1: This test was performed at: [facility], [address] [place] [address], [address] , [facility] ([place]) Summary Purpose Family History Father Status:Active Comments:HTN Advance Directives No Advanced Directives Records FoundNo Advanced Directives Records Found Additional Source Comments INFORMATION SOURCE (unrecogn ized section and content) DATE CREATED AUTHOR AUTHOR'S ORGANIZ ATION 05/05/2021 [facility] FOR RECORDS PERTAINING TO PATIENTS WHO ARE OR HAVE BEEN ENROLLED IN A CHEMICAL DEPENDENCY/SUBSTANCEABUSE PROGRAM, SOME INFORMATION MAY BE OMITTED. This clinical summary was aggregated from multiple sources. Caution should be exercised in using it in the provision of clinical care. This summary normalizes information from multiple sources, and as a consequence, information in this document may materially change the coding, format and clinical context of patient data. In addition, data may be omitted in some cases. CLINICAL DECISIONS SHOULD BE BASED ON THE PRIMARY CLINICAL RECORDS. [employer] provides no warranty or guarantee of the accuracy or completeness of information in this document.
--- NOTE | 2023-04-08 23:20 | EDS_ITS ---
HPI History of Present Illness Chief Complaint: Lower Extremity Injury Informant: patient Narrative Narrative: Just prior to arrival, patient noticed a red painful area on her medial left lower extremity near the knee/distal thigh today. It has not changed since she first noticed it this afternoon. She states she has a history of varicose veins, she has never had a blood clot but is concerned about 1. She denies any chest pain, shortness of breath, syncope, fevers or chills. She is 26 weeks and is not having any issues with regards to that right now. PFSH [facility] Medical History Superficial varicosities Home Medications rihogefz-[id number]-On-[id number] 1 mg tablet 1 tab PO DAILY 06/22/22 [History Last Taken 06/21/22] Allergy/AdvReac Type Severity Reaction Status Date / Time No Known Allergies Allergy Verified 04/08/23 22:32 Family History Father Hypertension Grandfather Cancer Surgical History H/O cardiac radiofrequency ablation History of surgery Social History household members: family housing: house number of children: 2 current occupational status: unemployed current occupational exposures/hazards: No leisure activities: reading history of recent travel: Yes out of state: Yes out of country: No Smoking Status: Never smoker alcohol intake: never substance use type: does not use well-balanced diet: daily or most days eating out: rarely or never what type of physical activity do you participate in: none fely/restorationist: [facility] seatbelt use: sometimes do you feel safe at home: Yes additional social history: - [place] -works in [employer] ROS ROS ED Constitutional Constitutional ED: Denies chills or fever(s) Cardiovascular Cardiovascular: Denies chest pain, palpitations, racing heartbeat or syncope Respiratory/Chest Respiratory/Chest: Denies dyspnea Musculoskeletal Musculoskeletal: Reports extremity pain; Denies neck pain Integumentary Reports rash; Denies Abrasions or wounds Neurologic Neurologic: Denies paresthesias or weakness EXAM Physical Exam Const Vital Signs: 04/08/23 22:32 04/08/23 22:35 Temperature 97.4 F L 97.4 F L Temperature Source Temporal Temporal Pulse Rate 87 87 Respiratory Rate 16 16 Blood Pressure 116/69 116/69 Blood Pressure Mean 84 84 Pulse Ox 100 100 Oxygen Delivery Method Room Air Room Air Positive well nourished and well developed General Appearance ED: well developed and NAD Neck full ROM and supple Resp normal respiratory effort Back/Spine normal ROM and normal to inspection Extremity Extremity Narrative: Significant bilateral lower extremity varicose veins. In the medial aspect of the left distal thigh near the knee but not involving the joint, there is an erythematous patch of skin about 4 cm x 7 cm that is very tender, and locally swollen but no pointing or fluctuance/abscess. All compartments soft and nondistended. Full range of motion of all joints including the knee. No palpable cords. The venous varicosities present appear benign and nontender without overlying erythema/cord. Neuro oriented x3, no focal motor deficits and no sensory deficits noted Sensorium / Orientation: alert Psych mental status grossly normal and thought process normal Skin no wounds Rashes: no rashes MDM MDM MDM Narrative Medical decision making narrative: Venous duplex Doppler ultrasound was obtained to the left lower extremity. I reviewed the images and the result which I agree with, consistent with superficial thrombophlebitis involving the erythematous painful area. No DVT. Patient reassured given appropriate discharge instructions for warm compresses, daily aspirin, and follow-up. Radiography Diagnostic Testing: Clinical Impression(s) from Imaging Studies Venous Duplex 04/08/23 22:42 IMPRESSION: No ultrasonographic evidence of deep venous thrombosis involving the left lower extremity. Superficial thrombophlebitis involving the medial aspect of the left knee. Electronically Signed: Citlalli Padilla MD at 23:39 EST , Discharge Plan Triage Chief Complaint: Lower Extremity Injury ED Provider: Tristian Mccall Dx/Rx/DC Orders Clinical Impression: Thrombophlebitis of superficial veins of left lower extremity, Superficial t hrombophlebitis during in second trimester Instructions: ED Thrombophlebitis, Superficial Prescriptions: No Action 1 mg Tablet 1 tab PO DAILY Primary Care Provider: Yennifer Samson JUNIOR PROJECT COORDINATOR Referrals: Yennifer Samson JUNIOR PROJECT COORDINATOR, JUNIOR PROJECT COORDINATOR-C [Primary Care Provider] - 5-7 Days Activity Restrictions/Additional Instructions: Take aspirin 81 mg once daily for the rest of your and apply warm compresses regularly to the affected area until resolution. Disposition Disposition: Home, Self Care
[2023-04-09 00:15] VITALS: BP 116/69; PULSE 87; RESP 16; TEMP 36.3; O2SAT 100
== END 2023-04-09 00:25 | disposition home or self-care (01) ==
PROVIDERS: Emergency Provider Emergency Medicine; PCP Nurse Practitioner Family; Visit Provider Emergency Medicine
DX: O22.22 Superficial thrombophlebitis in pregnancy, second trimester (principal); Z3A.26 26 weeks gestation of pregnancy; I80.02 Phlebitis and thrombophlebitis of superficial vessels of left lower extremity
CPT/HCPCS: 93971; 99282

== ENCOUNTER → 2023-04-14 | Outpatient (CLI) | payer OTHER, SELFPAY ==
--- OUTSIDE RECORDS SUMMARY | 2023-04-14 09:28 | XMS RPT_ITS | CCD ---
Author Name Unknown Address [address] [place] [address] Organization [facility] Care Team Providers Care Director Diversity Name Role Phone TOMMY SHARP Consulting Unavailable KAMILLA ALTMAN MD Admitting Unavailable KAMILLA ALTMAN MD Attending Unavailable KAMILLA ALTMAN MD Primary Care Unavailable PROVIDER, UNKNOWN [...] Consulting Unavailable LOUIS AVILES, JAZZMINE Najera Unavailable [phone] DIANNE GAMBLE Unavailable HILARIO Unavailable Unavailable ORTHOPEDICS, GENERAL Unavailable Unavailable Natalia Mckay RN Unavailable Unavailable TOMMY SHARP MD Unavailable [phone] JHON ADAMES MD Unavailable [phone] HANS DUMONT RN Unavailable Unavailable Stacy Altman Unavailable Unavailable He Goodrich Unavailable Unavailable DEMAR GOODRICHISTIN Unavailable Unavailable Deny Suero Unavailable Unavailable Marielle RN, Chica Unavailable Unavaila tiesha Sanders RN, Augusta Unavailable Unavailable Unavailable Unavailable Medications Current Medications Medication Drug Class(es) Dates Sig (Normalized) Sig (Original) docusate sodium 100 mg oral capsule (2 sources) Start: 04-27-2020 take 1 capsule by mouth twice daily as needed Colace 100 MG Oral Capsule ; 1 (one) Capsule Capsule two times daily, as needed for 0 days Quantity: 60 {Capsule} Refills: 1 Ordered: 27-Apr-2020 MIGUEL Mckay Start: 27-Apr-2020 Comments: Medication taken as needed. Completed/Discontinued Medications Medication Drug Class(es) Dates Sig (Normalized) Sig (Original) amoxicillin 500 mg oral capsule (2 sources) Penicillin-class Antibacterial Start: 04-03-2018 End: 04-10-2018 take [...] Date Documented Date Episodic/Chronic Administrative/socia l admission (8 sources) Patient encounter status; Translations: [Counseling, unspecified] 12-22-2020 Episodic Cardiac dysrhythmias (4 sources) Supraventricular tachycardia; Translations: [Supraventricular tachycardia] Onset: [...] gestation of ] Onset: 09-08-2020 Episodic Unclassified (2 sources) Post- visit - The patient is here for a scheduled follow-up 6 week visit following a vaginal delivery (at [place].). Note for Post- visit : delivered at 34 weeks.Trouble with constipation. Using colase but questions about lily lax. 11-30-2020 Unclassified (2 sources) OB VISIT - The patient is a primip and has an EDC of 11-25-20. 10-09-2020 Unclassified (2 sources) OB VISIT - The patient is a primip and has an EDC of 11-25-20. 09-11-2020 Unclassified (2 sources) OB VISIT - The patient is a primip, has a LNMP of 02/19/2020 and has an EDC of 11/25/2020. Note for OB VISIT : No Contractions. Not sure if she has felt the Baby Move 07-10-2020 Unclassified (2 sources) OB VISIT - The patient is a primip, has a LNMP of 02/19/2020 and has an EDC of 11/25/2020. Note for OB VISIT : No nausea and is feeling well. 06-12-2020 Unclassified (2 sources) OB VISIT - The patient is a primip, has a LNMP of 02-19-20 and has an EDC of 11-25-20. 05-15-2020 Unclassified (2 sources) Skin changes - Note for Skin changes : Patient has a lump on her right distal neck that she states she has had as long as I can remember. Patient c/o lump starting to hurt yesterday and it is hard and feels it is larger.. 04-03-2018 Unclassified (2 sources) !Patient notification of lab results - Vamshi. The test(s) that you had done were/was an MRI. Your tests showed the following abnormalities: broad based disc bulge to the right with mild foraminal impingement . Please follow up as scheduled and let us know if your symptoms do not improve (We can refer to a department specialist). 12-02-2017 Unclassified (2 sources) Foreign body - Date of occurrence: (01/04/16). Note for Foreign body : Has straight pin stuck in right upper arm. Part of pin broke off, did not find part that broke off. C/o pain. 01-05-2016 Unclassified (2 sources) Leg pain - The onset of the [...] since heart cath in 01/2015. 11-06-2015 Unclassified (2 sources) Immunization - Adacel was given. An immunization information sheet was provided. An IPV immunization was given. An immunization information sheet was provided. An MMR was given. An immunization information sheet was provided. 06-18-2013 Unclassified (2 sources) Neck Mass - Symptoms include neck mass (SMALL LUMP ON RIGHT NECK). Onset was 1 month(s) ago. Note for Neck Mass : . 11-08-2010 Results Test Name Value Interpretation Reference Range Facil ity Vital Signs Date Time Vital Sign Value Performing Clinician Faci lity 12-22-2020 13:12-0400 Body height 162.56 cm [facility] 12-22-2020 13:12-0400 Body mass index (BMI) [Ratio] 27.02 kg/m2 August[facility]. 12-22-2020 13:12-0400 Body surface area Derived from formula 1.77 m2 Augusta Sanders [facility]. 12-22-2020 13:12-0400 Body temperature 98.1 [degF] Augusta Sanders RN [facility] Encounters Encounter Date Encounter Type Care Provider Facility Start: 05-07-2021 End: 05-07-2021 Historical Summary JAZZMINE RAMIREZ-Yasir [facility] Start: 05-04-2021 End: 05-04-2021 ambulatory [facility] Start: 03-19-2021 End: 03-19-2021 Transition of Care JAZZMINE RAMIREZ-Yasir [facility] Start: 12-22-2020 End: 12-22-2020 Office outpatient visit 10 minutes JAZZMINE HOFSTETTER SUPPORT ARCHITECT-C Work Phone: [facility] [employer]. Start: 11-30-2020 End: 11-30-2020 Office outpatient visit 10 minutes JAZZMINE HOFSTETTER SUPPORT ARCHITECT-C Work Phone: [facility] [employer]. Start: 10-17-2020 End: 10-17-2020 ambulatory [facility] Start: 10-09-2020 End: 10-09-2020 Office outpatient visit 10 minutes JAZZMINE HOFSTETTER SUPPORT ARCHITECT-C Work Phone: [facility] Start: 09-11-2020 End: 09-11-2020 Office outpatient visit 10 minutes JAZZMINE HOFSTETTER SUPPORT ARCHITECT-C Work Phone: [facility] Start: 09-08-2020 End: 09-08-2020 ambulatory [facility] Start: 09-08-2020 End: 09-08-2020 Procedure Order JAZZMINE HOFSTETTER SUPPORT ARCHITECT-C Work Phone: [facility] Start: 08-31-2020 End: 08-31-2020 Lab Only JAZZMINE HOFSTETTER SUPPORT ARCHITECT-C Work Phone: [facility] Start: 08-14-2020 End: 08-14-2020 Office outpatient visit 10 minutes JAZZMINE HOFSTETTER SUPPORT ARCHITECT-C Work Phone: [facility] Start: 07-10-2020 End: 07-10-2020 Office outpatient visit 10 minutes JAZZMINE HOFSTETTER SUPPORT ARCHITECT-C Work Phone: [facility] [employer] Start: 06-12-2020 End: 06-12-2020 Office outpatient visit 10 minutes JAZZMINE HOFSTETTER SUPPORT ARCHITECT-C [facility] Start: 05-16-2020 End: 05-17-2020 Historical Summary JAZZMINE MYERS SUPPORT ARCHITECT-C [facility] Start: 05-15-2020 End: 05-15-2020 Office outpatient visit 40 minutes JAZZMINE MYERS SUPPORT ARCHITECT-C Work Phone: [facility] Start: 03-02-2020 End: 03-02-2020 Office outpatient visit 10 minutes JAZZMINE MYERS SUPPORT ARCHITECT-C [facility] Start: 04-03-2018 End: 04-03-2018 Office outpatient visit 10 minutes JAZZMINE MYERS SUPPORT ARCHITECT-C Work Phone: [facility] Start: 12-08-2017 End: 12-08-2017 Transition of Care JAZZMINE MYERS SUPPORT ARCHITECT-C Work Phone: [facility] Start: 12-02-2017 End: 12-02-2017 Follow-up encounter JAZZMINE MYERS SUPPORT ARCHITECT-C Work Phone: [facility] [employer] Start: 11-26-2017 End: 11-26-2017 Patient encounter procedure JAZZMINE MYERS SUPPORT ARCHITECT-C Work Phone: [facility] Start: 11-26-2017 End: 11-26-2017 Office outpatient visit 15 minutes JAZZMINE CARNEYER SUPPORT ARCHITECT-C Work Phone: [facility] Start: 01-05-2016 End: 01-05-2016 Office outpatient visit 15 minutes JAZZMINE MYERS SUPPORT ARCHITECT-C Work Phone: [facility] [employer]. Start: 11-06-2015 End: 11-06-2015 Office outpatient visit 10 minutes JAZZMINE CARNEYER SUPPORT ARCHITECT-C Work Phone: [facility] Start: 02-02-2015 End: 02-02-2015 Results Review JAZZMINE MYERS SUPPORT ARCHITECT-C Work Phone: [facility] Start: 12-21-2014 End: 12-21-2014 Historical Summary JAZZMINE MYERS SUPPORT ARCHITECT-C [facility] Start: 12-21-2014 End: 12-21-2014 Results Review JAZZMINE MYERS SUPPORT ARCHITECT-C [facility] Start: 06-18-2013 End: 06-18-2013 Injection/immunization only JAZZMINE MYERS SUPPORT ARCHITECT-C [facility] Start: 11-08-2010 End: 11-08-2010 Patient encounter procedure JAZZMINE MYERS SUPPORT ARCHITECT-C Work Phone: [facility] Start: 11-06-2010 End: 11-06-2010 Historical Summary JAZZMINE MYERS SUPPORT ARCHITECT-C Work Phone: [facility] Procedures Date Procedure Procedure Detail Performing Clinician Start: 05-04-2021 End: 05-04-2021 Screening colonoscopy TOMMY SHARP MD Work Phone: Plan of Treatment Date Care Activity Detail Author Start: 09-08-2020 Us preg uterus after 1st trimest 02/24 gestation [facility] [employer]; [employer] [facility] [employer] Immunizations Immunization Date Immunization Notes Care Provider Quoc alexandre 06-18-2013 *IMMUNIZATION ADMIN ([id number]) JAZZMINE MYERS SUPPORT ARCHITECT-C [facility]; [employer] [facility] [employer]. 06-18-2013 measles, mumps and rubella virus vaccine JAZZMINE MYERS SUPPORT ARCHITECT-C Work Phone: [facility]; [facility] Payers Date Payer Category Payer Unknown [id number] Unknown Social History Date Type Detail Facility Alcohol Use: Alcohol Use: ; N o Alcohol Use. [facility]; [facility] Current Work/Study Status Current Work/St udy Status [facility]; [facility] Tobacco use: Tobacco use: ; N ever smoker. [facility]; [facility] Female [facility]; [facility] Work Phone: Never smoked tobacco [facility]; [facility] Work Phone: Discharge summary note 10-28-2020 Note Date & Type Note Facility 10-28-2020 Note [facility] DISCHARGE SUMMARY NAME ACCOUNT SEX AGE ADMIT DISCHARGE PT MED. RECORD# NUMBER DATE DATE TYPE MARKUS JACKSON [id number] F 10/17/20 10/17/20 2 [id number] ROOM: [facility] [place] [facility] [place] DATE OF : 2000 ATTENDING PHYSICIAN: Kamilla [facility] COURSE: This is a 19-year-old primip at 34 and 2 weeks gestation admitted for observation in preparation for transfer to [facility]. She had rupture of membranes at about 4:15 a.m., clear fluid, and onset of contractions every 3 to 4 minutes. Upon arrival at OB, she was 4 cm, 80% effaced, and +1 with contractions every 3 to 4 minutes, which were [id number] in intensity. She did have clear fluid that appeared to be obvious rupture, as well as a positive AmniSure. The patient had laboratories taken, started on penicillin G, Celestone, and mag sulfate per instructions from Dr. Henry at [facility]. DISCHARGE INSTRUCTIONS/PLAN: Discussed at length with the patient and her , and they are agreeable to being transferred to [place] for further care. Dictated By: Kamilla Altman MD 10/17/20 08:18 JOB #: [id number] Transcribed By: am 10/17/20 16:17 Electronically signed by: Kamilla lAtman M.D. 10/28/20 08:15 Page 1 of 1 MANUELMARKUS Discharge Summary [facility] Clinical Note 10-18-2020 Note Date & Type [...] Locations *1: This test was performed at: [address], [address] [place] [address] ([place]) Clinical Note 05-17-2020 Note Date & Type [...] Locations *1: This test was performed at: [facility], [address] [place] [address], [id number] , [facility] ([place]) Summary Purpose Family History Father Status:Active Comments:HTN Father Status:Active Comments:HTN Advance Directives No Advanced Directives Records FoundNo Advanced Directives Records Found Additional Source Comments INFORMATION SOURCE (unrecogn ized section and content) DATE CREATED AUTHOR AUTHOR'S ORGANIZ ATION 05/05/2021 [facility] FOR RECORDS PERTAINING TO PATIENTS WHO [...] BE BASED ON THE PRIMARY CLINICAL RECORDS. [facility] [employer] provides no warranty or guarantee of the accuracy or completeness of information in this document.
[2023-04-14 09:46] LABS: Absolute Lymphocyte Count 0.81 X10^3/uL (0.83-4.51); Absolute Neutrophil Count 6.1 X10^3/uL (2.0-7.7); Basophil# 0.02 X10^3/uL; Basophil% 0.3 % (0-1); Eosinophil# 0.09 X10^3/uL; Eosinophils% 1.2 % (0-5); Hemoglobin 10.1 g/dL (12.0-15.0); Lymphocyte # 0.81 X10^3/ul (0.83-4.51); Lymphocyte % 10.8 % (19-41); Mean Corp Hgb Conc 33.7 g/dL (32-36); Mean Corpuscular Hgb 31.2 pg (27.0-32.0); Mean Corpuscular Volume 92.6 fL (81-99); Mean Platelet Vol. 10.3 fl (6.2-12.0); Monocyte# 0.45 X10^3/uL; NRBC Flagged by Analyzer 0 % (0-5); Neutrophil # 6.08 X10^3/uL (2.7-7.7); Neutrophil % 80.9 % (47-70); Platelet Count 206 K/mm3 (150-450); RBC Distribution Width CV 13.5 % (11.6-14.6); RBC Distribution Width SD 45.5 fl (35.1-43.9); Red Blood Count 3.24 M/mm3 (4.2-5.4); White Blood Count 7.5 K/mm3 (4.4-11.0)
[2023-04-14 10:23] LABS: Glucose Challenge Gest 1H 50g 130 mg/dL (70-140)
[2023-04-14 10:54] LABS: HIV - WCH Non-Reactive (Nonreactive); Syphilis Antibodies Non-reactive
== END | disposition home or self-care (01) ==
PROVIDERS: PCP Nurse Practitioner Family; Referring Provider Nurse Practitioner Women's Health; Visit Provider Nurse Practitioner Women's Health
DX: O09.90 Supervision of high risk pregnancy, unspecified, unspecified trimester (principal); Z3A.00 Weeks of gestation of pregnancy not specified
CPT/HCPCS: 36415; 82950; 85025; 86703; 86780; 86850; 86900; 86901; 87491; 87591

== ENCOUNTER → 2023-06-11 | Outpatient (CLI) | payer SELFPAY ==
--- NOTE | 2023-06-11 07:51 | US_ITS ---
STUDY: SECOND AND THIRD TRIMESTER OBSTETRICAL ULTRASOUND - LIMITED REASON FOR EXAM: Female, 22 years old SGA LMP: PRIOR ULTRASOUND: February 18, 2023 TECHNIQUE: TECHNICAL QUALITY: Adequate. FINDINGS: There is a single intrauterine fetus. The fetus is in a cephalic presentation. There is demonstrated cardiac activity with a heart rate of 141 bpm. There is a normal amniotic fluid volume. The largest amniotic fluid pocket measures 5.86 cm. The amniotic fluid index (PUJA) is 15.07 cm. The placenta is posterior BIOMETRY: BPD: 8.5 cm: 34 weeks, 2 days HC: 31.0 cm: 34 weeks, 5 days AC: 31.8 cm: 35 weeks, 5 days FL: 6.55 cm: 33 weeks, 5 days age by prior US: 19 weeks, 3 days. JIN by prior US: Jul 12 2023. age by current US: 34 weeks, 4 days. JIN by current US: July 19, 2023. Estimated weight: 2579 grams, +/- 387 grams, 29 percentile. US/OB Limited With Biometric[employer] IMPRESSION: Single live intrauterine fetus with an estimated gestational age of 34 weeks and 4 days. Electronically Signed: Tracy Bucio MD at 8:38 EDT ,
== END | disposition home or self-care (01) ==
PROVIDERS: PCP Nurse Practitioner Family; Referring Provider Registered Nurse; Visit Provider Registered Nurse
DX: O09.90 Supervision of high risk pregnancy, unspecified, unspecified trimester (principal); Z3A.00 Weeks of gestation of pregnancy not specified
CPT/HCPCS: 76816

== ENCOUNTER → 2023-06-27 | Outpatient (CLI) | payer SELFPAY ==
[2023-06-27 14:49] LABS: Group B Strep DNA By PCR Negative (Negative); Internal Control PASS; Probe Check PASS; Specimen Processing Control PASS
== END | disposition home or self-care (01) ==
LOC: LABSPEC 12:49
PROVIDERS: PCP Nurse Practitioner Family; Visit Provider Advanced Practice Midwife
DX: Z34.90 Encounter for supervision of normal pregnancy, unspecified, unspecified trimester (principal)
CPT/HCPCS: 87081; 87653

== ENCOUNTER 2023-07-11 12:44 | Inpatient (IN) | payer SELFPAY ==
[2023-07-11] VITALS (30 sets, daily range): BP systolic 105–126; BP diastolic 55–74; PULSE 49–72; RESP 16; TEMP 36.6–37.6; O2SAT 96–100; BMI 26.2
--- NOTE | 2023-07-11 13:34 | HP.PCM.OB_ITS ---
HPI - General General Date of Admission: 07/11/23 HPI Narrative MARKUS JACKSON, is a 22 F who presents at 40.1 with decreased fundal heights in office with confirmed oligohydramnios on bedside ultrasound PUJA 6. active fetus. denies LOF, vb/ctx. advanced dilation in office at 5cm. gbs negative recent growth scan on 06/08 infant in 29%. Maternal Data Information JIN Calculator Estimated Delivery Date Method Current WG Current Estimate 07/10/23 LMP (Uncertain) 40w 1d PFSH PFSH Home Medications ?Medication ?Instructions ?Recorded ?Last Taken ?Type nrmvnlpz-[id number]-FA 1 mg 1 tab PO DAILY 06/22/22 06/21/22 History tablet aspirin 81 mg tablet,delayed 81 mg PO DAILY 04/14/23 Unknown History release (Adult Aspirin Regimen) Allergy/AdvReac Type Severity Reaction Status Date / Time No Known Allergies Allergy Verified 07/11/23 10:30 Family History Father Hypertension Grandfather Cancer Surgical History S/P appendectomy H/O cardiac radiofrequency ablation Social History household members: family housing: house number of children: 2 current occupational status: unemployed current occupational exposures/hazards: No leisure activities: reading history of recent travel: Yes out of state: Yes out of country: No Smoking Status: Never smoker alcohol intake: never substance use type: does not use well-balanced diet: daily or most days eating out: rarely or never what type of physical activity do you participate in: none fely/buddhism: [facility] seatbelt use: sometimes do you feel safe at home: Yes additional social history: - Russell -works in [place] History 3 Elective abortions 0 Hx Para 2 Spontaneous abortions 0 Hx # Term Pregnancies 1 Ectopic pregnancies 0 Hx # Pregnancies 1 Multiple births 0 # of living children 2 Past Pregnancies Del. Date Name GA/Weeks Outcome Route Bth Weight Infant Gen Labor Lgth Anesthesia Del Locatn Provider FOB Unknown Linda 34 live - 5lbs 8oz Female Arianna 06/22/22 Austin 39 live - full term 7lbs 10z Male Satish Garza Visit Details Expected Delivery Route/Plan Labor Preferences- CB/BF classes: no labor support person: Russell labor intervention preferences: [] pain management options preferred: limited cut cord/dad catch: no : yes PP control planned: discussed discussed possible routes of delivery and associated risks: [] special requests: [] Plans Covid status: Flu vaccine: declines Tdap vaccine: declines Rhogam: declines, Rh neg-on chart LARC form signed: yes movement and labor precautions reviewed. Problem list reviewed and updated with the most current plan of care details and appropriate orders placed. Relevant counseling for the gestational age provided. Continue routine care and follow up unless otherwise noted in visit notes/problem list details OB Flowsheet Initial Weight: 130 lb Date -?-?-?-?-?-?-?-?-?-?-?-?- EGA Weight BP Urine Prot -?-?-?-?-?-?-?-?-?-?-?-?- Glucose FHR FuHt Pres Dilation -?-?-?-?-?-?-?-?-?-?-?-?- Effaced St Visit Note 01/27/23 -?-?-?-?-?-?-?-?-?-?-?-?- 16w 4d 130 lb 4 oz (+4 oz) 114/70 -?-?-?-?-?-?-?-?-?-?--?-?- 155 -?-?-?-?-?-?-?-?-?-?-?-?- KW- no vb/crampi ng. possible flutters. has US scheduled 02/18. no concerns declines NIPT KW- no vb/cramping. possible flutters. has US scheduled 02/18-will discuss at next appointment. no concerns. declines NIPT 02/25/23 -?-?-?-?-?-?-?-?-?-?-?-?- 20w 5d 136 lb 2 oz (+6 lb 2 oz) 101/63 Negative -?-?-?-?-?-?-?-?-?-?-?-?- Negative 140 20 -?-?-?-?-?-?-?-?-?-?-?-?- KW-no vb/tristan whitaker fm. US and labs reviewed. is O-, lab result copied to scan into computer 04/14/23 -?-?-?-?-?-?-?-?-?-?-?-?- 27w 4d 142 lb 8 oz (+12 lb 8 oz) 115/70 Negative -?-?-?-?-?-?-?-?-?-?-?-?- Negative 156 27 -?-?-?-?-?-?-?-?-?-?-?-?- MH-No VB, LOF. G ood Fm. Larc/28 wk labs. Varicosities improving 04/28/23 -?-?-?-?-?-?--?-?-?-?-?-?- 29w 4d 143 lb 8 oz (+13 lb 8 oz) 112/68 Negative -?-?-?-?-?-?-?-?-?-?-?-?- Negative 145 29 -?-?-?-?-?-?-?-?-?-?-?-?- JV- no lof, vagi nal bleeding, or dec fm. no complaints. deciding on tdap still. does not want rhogam as is also rh neg. 05/16/23 -?-?-?-?-?-?-?-?-?-?-?-?- 32w 1d 143 lb (+13 lb) 110/70 Negative -?-?-?-?-?-?-?-?-?-?-?-?- Negative 145 31 Cephalic -?-?-?-?-?-?-?-?-?-?-?-?- SM- no vb lof go od fm no reuglar ctx 05/27/23 -?-?-?-?-?-?-?-?-?-?-?-?- 33w 5d 147 lb 2 oz (+17 lb 2 oz) 118/68 Negative -?-?-?-?-?-?-?-?-?-?-?-?- Negative 125 32 -?-?-?-?-?-?-?-?-?-?-?-?- KW- no vb/lof/ct x. good fm. 06/09/23 -?-?-?-?-?-?-?-?-?-?-?-?- 35w 4d 148 lb 6 oz (+18 lb 6 oz) 106/66 Negative -?-?-?-?-?-?-?-?-?-?-?-?- Negative 140 33 -?-?-?-?-?-?-?-?-?-?-?-?- LC- no vb/ctx/lo f. good fm. SGA today. growth scan ordered. 06/27/23 -?-?-?-?-?-?-?-?-?-?-?-?- 38w 1d 149 lb 8 oz (+19 lb 8 oz) 104/66 Negative -?-?-?-?-?-?-?-?-?-?-?-?- Negative 130 36 3.5 -?-?-?-?-?-?-?-?-?-?-?-?- 80 -2 KW- no vb/ lof/ctx. good fm. growth showed 29%. GBS today KW- no vb/lof/ctx. good fm. growth showed 29%. GBS today. ATB for UTI 07/04/23 -?-?-?-?-?-?-?-?-?-?-?-?- 39w 1d 151 lb (+21 lb) 116/69 Negative -?-?-?-?-?-?-?-?-?-?-?-?- Negative 132 37 -?-?-?-?-?-?-?-?-?-?-?-?- LC-no vb/ctx/lof . good fm. declines ve. itching with burning. speculum exam with curdy white discharge c/w yeast infection. diflucan rx sent. 07/11/23 -?-?-?-?-?-?-?-?-?-?-?-?- 40w 1d 149 lb (+19 lb) 111/71 Negative -?-?-?-?-?-?-?-?-?-?-?-?- Negative 135 35 5 -?-?-?-?-?-?-?-?-?-?-?-?- 80 -1 JV- PUJA is 6 and has JV- PUJA is 6 and has low FH and advanced cervical dilation. Pt wishes to go home first then will present to L&D for augmentation. ROS Cardiovascular Cardiovascular: Denies abdominal pain, chest pain, diaphoresis or dyspnea Respiratory/Chest Respiratory/Chest: Denies change in mental status, chest congestion, chest tightness, cough, shortness of breath at rest, shortness of breath with exertion, breast mass, breast pain, breast skin changes, breast swelling, change in breast shape or nipple discharge Genitourinary Genitourinary: Reports change in urinary stream Musculoskeletal Musculoskeletal: Reports none Integumentary Integumentary: Reports none Neurologic Neurologic: Reports none Psychiatric Psychiatric: Reports none Endocrine Endocrinology: Reports none Hematologic/Lymphatic Hematologic/Lymphatic: Reports none Allergic/Immunologic Allergic/Immunologic: Reports none Vital Signs Vital Signs Vital Signs: 07/11/23 12:50 07/11/23 12:50 07/11/23 12:51 Temperature Temperature Source Temporal Pulse Rate 69 Respiratory Rate Blood Pressure BP Systolic BP Diastolic Pulse Ox 99 07/11/23 12:51 07/11/23 12:51 07/11/23 12:51 Temperature 98.2 F Temperature Source Pulse Rate Respiratory Rate 16 Blood Pressure BP Systolic BP Diastolic Pulse Ox 99 07/11/23 12:52 07/11/23 12:52 Temperature Temperature Source Pulse Rate 69 Respiratory Rate Blood Pressure 110/65 BP Systolic 110 BP Diastolic 65 Pulse Ox Weight Weight: 148 lb 2.41 oz Body Mass Index (BMI) 26.2 Physical Exam Const alert, oriented x3 and no apparent distress General Appearance: cooperative, comfortable and well kempt Orientation / Consciousness: awake and oriented to person Exam Limitations: no limitations HEENT normocephalic Neck full ROM Chest inspection of chest normal Resp normal respiratory effort, normal air movement and no retractions Effort and Inspection: able to speak in complete sentences and symmetric chest movement Cardio regular rate Peripheral Pulses: pulses 2+ throughout GI normal to inspection, nondistended, normoactive bowel sounds Inspection: gravid no CVA tenderness and appearance of the vagina normal External Female Exam: normal appearance of the urethra; Negative for external lesion OB / External & Speculum: external exam normal Manual OB Exam: estimated gestational size appropriate and presentation cephalic Uterus Palpation: Negative for uterus tender Extremity normal to inspection Skin no rashes or lesions noted Neuro deep tendon reflexes 2+ bilaterally and gait normal Motor Exam: strength 5/5 throughout and clonus absent Psych Activity / Motor Behavior: appropriate eye contact Speech: normal speech Labs Labs Labs: Blood Type A NEGATIVE Antibody Screen NEGATIVE Hct 30.0 % (37-47) L Hgb 10.1 g/dL (12.0-15.0) L Obstetrics Ultrasound Syphilis Total Ab Non-reactive VZV IgG Antibody 1446 index (Immune >165) Rubella IgG Antibody Reactive (Nonreactive) Hep Bs Antigen Non-Reactive (Nonreactive) Hepatitis C Antibody Non-Reactive (Nonreactive) HIV 1&2 Antibody Non-Reactive (Nonreactive) Glucose 1 Hr 50 gm 130 mg/dL (70-140) Group B Strep DNA Negative (Negative) Assessment & Plan (1) Encounter for induction of labor: (2) Oligohydramnios antepartum: COMMENT: PUJA 6 on office us by Dr. Gilbert. (3) Small for gestational age fetus: COMMENT: 06/08 growth scan 29% (4) Anemia affecting : COMMENT: iron supplement. (5) Rh negative status during : QUALIFIERS: Trimester: second trimester Qualified Code(s): O26.892 - Other specified related conditions, second trimester; Z67.91 - Unspecified blood type, Rh negative COMMENT: Declines Rhogam at 28 weeks and PRN. Russell negative and copy on chart. (6) Supervision of high risk , antepartum: COMMENT: PRR JIN 07/10/23 PC Austin Mckeon Spouse Russell (7) : QUALIFIERS: Weeks of gestation: 40 weeks Qualified Code(s): Z3A.40 - 40 weeks gestation of COMMENT: GBS neg, declines NIPT/carrier, anatomy nl. (8) H/O cardiac radiofrequency ablation: COMMENT: for SVT in 2016. stable. PLAN: Plan Patient presents IOL, plan management for with pitocin/AROM. Pain management: plans epidural. GBS negative. Management of any complications: none I have reviewed the [facility] and made any clinically relevant updates. Dr. Schafer updated on admission, exam and poc.
[2023-07-11] MEDS: Lactated Ringers 1,000 ML 50 ML IV (13:50)
[2023-07-11 14:19] LABS: Absolute Lymphocyte Count 1.61 X10^3/uL (0.83-4.51); Absolute Neutrophil Count 7.6 X10^3/uL (2.0-7.7); Basophil# 0.02 X10^3/uL; Basophil% 0.2 % (0-1); Eosinophil# 0.06 X10^3/uL; Eosinophils% 0.6 % (0-5); Hematocrit 36.6 % (37-47); Hemoglobin 12.4 g/dL (12.0-15.0); Lymphocyte # 1.61 X10^3/ul (0.83-4.51); Lymphocyte % 16.3 % (19-41); Mean Corp Hgb Conc 33.9 g/dL (32-36); Mean Corpuscular Hgb 31.6 pg (27.0-32.0); Mean Corpuscular Volume 93.4 fL (81-99); Monocyte# 0.52 X10^3/uL; Monocyte% 5.3 % (0-10); NRBC Flagged by Analyzer 0 % (0-5); Neutrophil # 7.63 X10^3/uL (2.7-7.7); Neutrophil % 77.2 % (47-70); Platelet Count 185 K/mm3 (150-450); RBC Distribution Width CV 13.2 % (11.6-14.6); RBC Distribution Width SD 44.7 fl (35.1-43.9); Red Blood Count 3.92 M/mm3 (4.2-5.4); White Blood Count 9.9 K/mm3 (4.4-11.0)
[2023-07-11 15:34] LABS: Syphilis Antibodies Non-reactive
[2023-07-11] MEDS: Oxytocin 15 Units/NS 250ml 15 UNITS/250 ML IV.SOLN 334 UNITS IV (16:55)
--- NOTE | 2023-07-11 16:58 | EX.PCM.OBRPT ---
Assessment & Plan (1) (spontaneous vaginal delivery): COMMENT: LC IOL-oligio girl Maternal Data Information JIN Calculator Estimated Delivery Date Method Current WG Current Estimate 07/10/23 LMP (Uncertain) 40w 1d Final JIN: 07/10/23 Gestational age: 40.1 Vaginal Delivery Maternal Presentation Maternal Presentation: Medically Indicated Induction Maternal Presentation: at 40.1 for IOL for oligohydramnios. Type of Induction: Amniotomy Operative Information Date of Procedure: 07/11/23 Pre-Operative Diagnosis: see problem list Surgery / Procedure Performed: Spontaneous Vaginal Delivery Type of Anesthesia: None Estimated Blood Loss: 50 Time of Delivery: 16:45 Findings Description of Procedure: Patient began pushing and delivered the head in the MARY presentation. The head was delivered atraumatically. The anterior and posterior shoulders delivered without complication followed by the rest of the and the infant was placed on the maternal abdomen. Delayed cord clamping was employed for approximately 60 seconds. Cord was clamped and cut and gentle traction was applied to the cord and the placenta delivered spontaneously immediately following it was noted to be intact with three-vessel cord. The perineum and vagina were inspected and noted to have no laceration. EBL was 50cc. Patient and infant tolerated delivery well. updated on delivery. agrees with routine pp orders. Presentation: Vertex Amniotic Membrane Rupture Type: Artificial Amniotic Fluid Description: Clear Placental Delivery Description: Spontaneous Placenta Disposition: [facility] Cord Vessel Description: 3 Vessels Cord Entanglement: None A Gender: Female (1 minute): 8 (5 minute): 9 Delayed Cord Clamping: Yes Post Vaginal Delivery Medications Given After Delivery: IV Pitocin Episiotomy Description: None Laceration: None Complication Complications: None Procedures Urinary/Genital [id number]: [id number] Vaginal Delivery [facility]
--- NOTE | 2023-07-11 17:04 | PCM.DC ---
Discharge Instructions Diet Discharge Diet: No restrictions Activity Discharge Activity: May Not Drive and May Shower May resume sexual activity in: 6 weeks Weight Bearing Status: Full weight bearing Dressing / Incision Call your doctor if your incision/area has: Sudden Increased Bleeding, Increased Pain/ Swelling and Foul Smelling Discharge Call your doctor if you observe: Fever of 101 or Higher, Numbness or Tingling, Change in Color, Inability to urinate, Inability to have a bowel movement, Using more than 1 pad per hour, Shortness of breath, Dizziness, Fainting spells, Chest pain, Calf discomfort and Uncontrolled pain Follow Up Care Please Follow Up With: Michelle Oreilly CNM When: 6 weeks , please call office to make an appointment. Congratulations on the of your baby! Test Results: Test results from this visit will be discussed in further detail at your follow-up appointment, if applicable. Discharge Plan Admission Admit Date/Time: 07/11/23 12:44 Attending Provider: Michelle Oreilly Primary Care Provider: Yennifer Samson NP Discharge Orders/Prescriptions Prescriptions: No Action aspirin [Adult Aspirin Regimen] 81 mg tablet,delayed release (DR/EC) 81 mg PO DAILY 1 mg Tablet 1 tab PO DAILY Referrals / Follow Up: Yennifer Samson NP, EEO OFFICER-C [Primary Care Provider] -
[2023-07-11] MEDS: 0.9% Saline Lock 10 ML Syringe IV (19:33)
[2023-07-12] VITALS (8 sets, daily range): BP systolic 113–128; BP diastolic 56–80; PULSE 60–76; RESP 14–16; TEMP 36.6–37.2; O2SAT 97–98
[2023-07-12] MEDS: Acetaminophen 500 MG Tablet 1000 MG PO ×2 (04:21→13:00)
--- NOTE | 2023-07-12 10:47 | PN.OBGYN_ITS ---
Subjective Subjective Patient doing well without complaints. Tolerating PO. Ambulating and voiding without difficulty. Feeding well. Denies chest pain, shortness of breath, calf pain/swelling, fevers, chills, lightheadedness. Objective Data Objective Data Vital Signs: Vital Signs Temp Pulse Resp BP Pulse Ox O2 Del Method 98.6 F 65 16 113/56 L 98 Room Air 07/12/23 07:45 07/12/23 07:45 07/12/23 07:45 07/12/23 07:45 07/12/23 04:49 07/12/23 04:49 Oxygen Delivery Method Room Air Weight: 148 lb 2.41 oz Body Mass Index (BMI) 26.2 Intake & Output: Intake and Output for Last 24 Hours 07/10/23 07/11/23 07/12/23 23:59 23:59 23:59 Intake Total 395.83 / 395.83 Output Total 1350 / 1350 Balance -954.17 / -954.17 Lab / Micro Data 07/11/23 13:50 Labs: Laboratory Results - last 24 hr 07/11/23 13:50: WBC 9.9, RBC 3.92 L, Hgb 12.4, Hct 36.6 L, MCV 93.4, MCH 31.6, MCHC 33.9, RDW Std Deviation 44.7 H, RDW Coeff of Oz 13.2, Plt Count 185, MPV 11.0, Immature Gran % (Auto) 0.400, Neut % (Auto) 77.2 H, Lymph % (Auto) 16.3 L, [facility] % (Auto) 5.3, Eos % (Auto) 0.6, Baso % (Auto) 0.2, Absolute Neuts (auto) 7.6, Absolute Lymphs (auto) 1.61, Nucleated RBC % 0, Syphilis Total Ab Non- reactive, Blood Type A NEGATIVE, Antibody Screen NEGATIVE Physical Exam Const alert and oriented x3 HEENT normocephalic Neck full ROM Lymph Lymphatic: no lymphadenopathy noted Chest inspection of chest normal and inspection of breasts normal Resp normal respiratory effort, normal air movement and no retractions Cardio regular rate and regular rhythm GI normal to inspection, nondistended, normoactive bowel sounds Uterus Palpation: uterus fundus firm Extremity normal to inspection, full ROM and no calf tenderness Skin no rashes or lesions noted Psych mental status grossly normal Assessment & Plan (1) Precipitous delivery: (2) (spontaneous vaginal delivery): COMMENT: KHRIS IOL-oligio girl PLAN: s/p PPD #1 1. routine post delivery care 2. breast feeding- support given 3. rh positive 4. rubella immune 5. d/c home this evening.
== END 2023-07-12 18:45 | disposition home or self-care (01) | DRG 807 ==
PROVIDERS: Admitting Provider Registered Nurse; PCP Nurse Practitioner Family; Visit Provider Registered Nurse
DX: O41.03X0 Oligohydramnios, third trimester, not applicable or unspecified (principal); Z37.0 Single live birth; O36.5930 Maternal care for other known or suspected poor fetal growth, third trimester, not applicable or unspecified; O26.893 Other specified pregnancy related conditions, third trimester; Z67.11 Type A blood, Rh negative; O62.3 Precipitate labor; O99.02 Anemia complicating childbirth; Z3A.40 40 weeks gestation of pregnancy; Z79.82 Long term (current) use of aspirin; Z86.79 Personal history of other diseases of the circulatory system
CPT/HCPCS: 59025; 59050; 85025; 86780; 86850; 86900; 86901; 99221; J7120; A4216; G0378

== ENCOUNTER → 2024-02-06 | Outpatient (CLI) | payer SELFPAY ==
--- NOTE | 2024-02-06 14:19 | US_ITS ---
STUDY: SECOND AND THIRD TRIMESTER OBSTETRICAL ULTRASOUND REASON FOR EXAM: Female, 23 years old unknown lmp -- PRELIMINARY DATING DONE IN DOCTORS OFFICE BUT DOCTOR WANTED MORE THOROUGH DATING LMP: October 20, 2023. TECHNIQUE: Transabdominal TECHNICAL QUALITY: Adequate. PRIOR ULTRASOUND: None. FINDINGS: There is a single intrauterine fetus. The fetus is in a breech presentation. There is demonstrated cardiac activity with a heart rate of 160 bpm. There is a normal amniotic fluid volume. The largest amniotic fluid pocket measures 2.9 cm. The amniotic fluid index (PUJA) is within normal limits. The placenta is posterior in location and is not low lying. There are Grade 0 placental changes. The cervix measures 3.1 cm in length. The adnexal regions are not visualized. BIOMETRY: BPD: 3.5 cm: 16 weeks, 5 days: 90.4% HC: 13.5 cm: 17 weeks, 0 days: 95.5% AC: 11.9 cm: 17 weeks, 4 days: 97.2% FL: 2.24 cm: 16 weeks, 5 days: 86.5% CI: 72.4% FL/BPD: 64.8% FL/HC: 16.6% FL/AC: 18.9% HC/AC: 1.14 age by current US: 17 weeks, 0 days. JIN by current US: July 16, 2024. Estimated weight: 183 grams, +/- 27 grams, 99 %. Age by LMP: 15 weeks, 4 days. JIN by LMP: July 26, 2024. US/OB Limited With Biometrics IMPRESSION: Single live intrauterine gestation with a mean gestational age of 17 weeks. Electronically Signed: Blake Purcell MD at 10:08 EST ,
== END | disposition home or self-care (01) ==
PROVIDERS: PCP Nurse Practitioner Family; Referring Provider Advanced Practice Midwife; Visit Provider Advanced Practice Midwife
DX: Z78.9 Other specified health status (principal)
CPT/HCPCS: 76816

== ENCOUNTER → 2024-02-06 | Outpatient (CLI) | payer SELFPAY ==
[2024-02-06 16:27] LABS: Absolute Lymphocyte Count 1.44 X10^3/uL (0.83-4.51); Absolute Neutrophil Count 7.1 X10^3/uL (2.0-7.7); Basophil# 0.01 X10^3/uL; Basophil% 0.1 % (0-1); Eosinophil# 0.18 X10^3/uL; Hematocrit 33.1 % (37-47); Hemoglobin 11.7 g/dL (12.0-15.0); Lymphocyte # 1.44 X10^3/ul (0.83-4.51); Lymphocyte % 15.8 % (19-41); Mean Corp Hgb Conc 35.3 g/dL (32-36); Mean Corpuscular Hgb 31.5 pg (27.0-32.0); Mean Corpuscular Volume 89.2 fL (81-99); Mean Platelet Vol. 11.1 fl (6.2-12.0); Monocyte# 0.37 X10^3/uL; Monocyte% 4.1 % (0-10); NRBC Flagged by Analyzer 0 % (0-5); Neutrophil # 7.08 X10^3/uL (2.7-7.7); Neutrophil % 77.5 % (47-70); Platelet Count 213 K/mm3 (150-450); RBC Distribution Width CV 13.1 % (11.6-14.6); RBC Distribution Width SD 42.7 fl (35.1-43.9); Red Blood Count 3.71 M/mm3 (4.2-5.4); White Blood Count 9.1 K/mm3 (4.4-11.0)
[2024-02-09 19:35] LABS: HIV - WCH Non-Reactive (Nonreactive); Hepatitis B Surface Antigen Non-Reactive (Nonreactive); Hepatitis C Antibody Non-Reactive (Nonreactive); Rubella IgG Reactive (Nonreactive); Syphilis Antibodies Non-reactive
[2024-02-09 21:06] LABS: Chlamydia By Nucleic Acid AMP Negative (Negative); Gonococcus By Nucleic Acid AMP Negative (Negative)
== END | disposition home or self-care (01) ==
LOC: BWCLAB 13:06
PROVIDERS: PCP Nurse Practitioner Family; Referring Provider Advanced Practice Midwife; Visit Provider Advanced Practice Midwife
DX: O09.90 Supervision of high risk pregnancy, unspecified, unspecified trimester (principal); Z3A.00 Weeks of gestation of pregnancy not specified
CPT/HCPCS: 36415; 85025; 86703; 86762; 86780; 86803; 86850; 86900; 86901; 87340; 87491; 87591

== ENCOUNTER → 2024-03-08 | Outpatient (CLI) | payer SELFPAY ==
--- NOTE | 2024-03-08 09:10 | US_ITS ---
STUDY: SECOND AND THIRD TRIMESTER OBSTETRICAL ULTRASOUND REASON FOR EXAM: Female, 23 years old anatomy scan LMP: October 10, 2023. TECHNIQUE: Transabdominal and Transvaginal TECHNICAL QUALITY: Adequate. PRIOR ULTRASOUND: None. FINDINGS: There is a single intrauterine fetus. The fetus is in a cephalic presentation. There is demonstrated cardiac activity with a heart rate of 155 bpm. There is a normal amniotic fluid volume. The largest amniotic fluid pocket measures 3.8 cm. The amniotic fluid index (PUJA) is within normal limits. The placenta is posterior in location and is not low lying. Marginal insertion of the umbilical cord. There are Grade 1 placental changes. The cervix measures 3.9 in length. The adnexal regions are not visualized. BIOMETRY: BPD: 5.07 cm: 21 weeks, 2 days: 45% HC: 19.63 cm: 21 weeks, 6 days: 57% AC: 17.17 cm: 22 weeks, 1 days: 66% FL: 3.36 cm: 20 weeks, 4 days: 15% CI: 74% FL/BPD: 66% FL/HC: 17% FL/AC: 20% HC/AC: 1.14 age by current US: 21 weeks, 4 days. JIN by current US: July 15, 2024. Estimated weight: 426 grams, +/- 64 grams, 45 %. Age by LMP: 21 weeks, 3 days. JIN by LMP: July 16, 2024. ANATOMY: Gender: Indeterminant Cranium: Normal lateral ventricles. Normal choroid plexus. Normal cerebellum. Normal cisterna magna. Normal face, nose and lips. Chest: Normal 4-chamber heart. Abdomen/Pelvis: Normal diaphragm. Normal stomach. Normal abdominal wall. Normal cord insertion. Normal 3 vessel cord. Normal kidneys. Normal bladder. Spine: Normal cervical spine. Normal thoracic spine. Normal lumbar spine. Normal sacrum. Extremities: Normal bilateral upper extremities. Normal bilateral lower extremities. IMPRESSION: Single live intrauterine gestation with a mean gestational age of 21 weeks and 4 days. Electronically Signed: Blake Purcell MD at 12:34 EST , STUDY: FIRST TRIMESTER OBSTETRICAL ULTRASOUND REASON FOR EXAM: Female, 23 years old . Cervical length. LMP: October 10, 2023. TECHNIQUE: Transvaginal TECHNICAL QUALITY: Adequate. PRIOR ULTRASOUND: None. FINDINGS: Cervical length measures 3.9 cm. US/OB Anatomy w/ Transvaginal IMPRESSION: Cervical length measures 3.9 cm. Electronically Signed: Blake Purcell MD at 12:34 EST ,
== END | disposition home or self-care (01) ==
PROVIDERS: PCP Nurse Practitioner Family; Referring Provider Advanced Practice Midwife; Visit Provider Advanced Practice Midwife
DX: O09.90 Supervision of high risk pregnancy, unspecified, unspecified trimester (principal); Z3A.00 Weeks of gestation of pregnancy not specified

== ENCOUNTER → 2024-04-22 | Outpatient (CLI) | payer SELFPAY ==
[2024-04-22 10:52] LABS: Absolute Lymphocyte Count 0.73 X10^3/uL (0.83-4.51); Absolute Neutrophil Count 5.9 X10^3/uL (2.0-7.7); Basophil# 0.02 X10^3/uL; Basophil% 0.3 % (0-1); Eosinophil# 0.13 X10^3/uL; Eosinophils% 1.8 % (0-5); Hematocrit 31.2 % (37-47); Hemoglobin 10.7 g/dL (12.0-15.0); Lymphocyte # 0.73 X10^3/ul (0.83-4.51); Lymphocyte % 10.3 % (19-41); Mean Corp Hgb Conc 34.3 g/dL (32-36); Mean Corpuscular Hgb 31.8 pg (27.0-32.0); Mean Corpuscular Volume 92.6 fL (81-99); Mean Platelet Vol. 10.3 fl (6.2-12.0); Monocyte# 0.27 X10^3/uL; Monocyte% 3.8 % (0-10); NRBC Flagged by Analyzer 0 % (0-5); Neutrophil # 5.91 X10^3/uL (2.7-7.7); Neutrophil % 83.1 % (47-70); Platelet Count 259 K/mm3 (150-450); RBC Distribution Width CV 12.7 % (11.6-14.6); RBC Distribution Width SD 42.7 fl (35.1-43.9); Red Blood Count 3.37 M/mm3 (4.2-5.4); White Blood Count 7.1 K/mm3 (4.4-11.0)
[2024-04-22 11:53] LABS: Glucose Challenge Gest 1H 50g 85 mg/dL; HIV Nonreactive (Nonreactive); Syphilis Antibodies Nonreactive (Nonreactive)
== END | disposition home or self-care (01) ==
PROVIDERS: PCP Nurse Practitioner Family; Referring Provider Nurse Practitioner Women's Health; Visit Provider Nurse Practitioner Women's Health
DX: O26.892 Other specified pregnancy related conditions, second trimester (principal); Z3A.21 21 weeks gestation of pregnancy; Z67.91 Unspecified blood type, Rh negative
CPT/HCPCS: 36415; 82950; 85025; 86703; 86780; 86850; 86900; 86901

== ENCOUNTER → 2024-06-02 | Outpatient (CLI) | payer SELFPAY | END | disposition home or self-care (01) | LOC: LABSPEC 11:06 | PROVIDERS: PCP Nurse Practitioner Family; Referring Provider Obstetrics & Gynecology; Visit Provider Obstetrics & Gynecology | DX: N89.8 Other specified noninflammatory disorders of vagina (principal) | CPT/HCPCS: 87070; 87205 ==

== ENCOUNTER → 2024-06-16 | Outpatient (CLI) | payer SELFPAY | END | disposition home or self-care (01) | PROVIDERS: PCP Nurse Practitioner Family; Referring Provider Obstetrics & Gynecology; Visit Provider Obstetrics & Gynecology | DX: O09.92 Supervision of high risk pregnancy, unspecified, second trimester (principal); Z3A.00 Weeks of gestation of pregnancy not specified | CPT/HCPCS: 87081 ==

== ENCOUNTER → 2024-06-16 | Outpatient (CLI) | payer SELFPAY ==
--- NOTE | 2024-06-16 08:08 | US_ITS ---
PROCEDURE: OB LIMITED WITH BIOMETRICS 06/16/2024 REASON FOR EXAM: 36 WEEK GROWTH TECHNIQUE: High resolution obstetric ultrasound performed using a 2D transducer. Standard views obtained, including biometry, anatomy survey, and Doppler studies. COMPARISON: Comparison is made with prior study dated March 08, 2024. FINDINGS Number: 1 Position: Vertex Placental Position: Posterior and not low-lying. The placenta cord insertion is at 2 cm from the placental edge. DIMENSIONS: Biparietal Diameter: 8.8 cm: 35 weeks and 4 days: 53rd percentile/ Head Circumference: 32.9 cm: 37 weeks and 3 days: 61 percentile/ Abdominal Circumference: 30.1 cm: 34 weeks and 0 days: 15 percentile/ Femur Length: 6.9 cm: 35 weeks and 2 days: 33rd percentile/ ESTIMATED WEIGHT: 2513 g plus/-377 g ESTIMATED WEIGHT PERCENTILE (24+ weeks): 26 ESTIMATED GESTATIONAL AGE: Baseline: 35 weeks and 5 days By Ultrasound: 35 weeks and 5 days ESTIMATED DATE OF DELIVERY: Baseline: July 16, 2024 By Ultrasound: July 16, 2024 BIOPHYSICAL ASSESSMENT: Amniotic Fluid Volume: 3.5 cm Amniotic Fluid Index: 10.1 (8-24 cm normal range) Cardiac Motion: 132 beats per minutes (average) Trunk and Limb Motion: Present. MATERNAL ANATOMY: Adnexa: Neither maternal ovary is successfully identified. US/OB Limited With Biometrics IMPRESSION: Single live intrauterine gestation with mean gestational age of 35 weeks and 5 days. There has been good interval growth. The placental cord insertion is at 2 cm from the placental edge. Reading Location: [facility]
== END | disposition home or self-care (01) ==
PROVIDERS: PCP Nurse Practitioner Family; Referring Provider Obstetrics & Gynecology; Visit Provider Obstetrics & Gynecology
DX: O09.299 Supervision of pregnancy with other poor reproductive or obstetric history, unspecified trimester (principal); Z3A.00 Weeks of gestation of pregnancy not specified
CPT/HCPCS: 76816

== ENCOUNTER 2024-06-30 10:59 | Inpatient (IN) | payer SELFPAY ==
[2024-06-30] VITALS (60 sets, daily range): BP systolic 88–117; BP diastolic 55–67; PULSE 68–102; RESP 15–16; TEMP 36.4–36.8; O2SAT 99–100; BMI 26.4
[2024-06-30] MEDS: Lactated Ringers 1,000 ML 50 ML IV (11:25)
[2024-06-30 11:39] LABS: Absolute Lymphocyte Count 1.53 X10^3/uL (0.83-4.51); Absolute Neutrophil Count 6.9 X10^3/uL (2.0-7.7); Basophil# 0.03 X10^3/uL; Basophil% 0.3 % (0-1); Eosinophil# 0.08 X10^3/uL; Eosinophils% 0.9 % (0-5); Hematocrit 34.5 % (37-47); Lymphocyte # 1.53 X10^3/ul (0.83-4.51); Mean Corp Hgb Conc 34.8 g/dL (32-36); Mean Corpuscular Hgb 31.3 pg (27.0-32.0); Mean Corpuscular Volume 89.8 fL (81-99); Mean Platelet Vol. 10.7 fl (6.2-12.0); Monocyte# 0.39 X10^3/uL; Monocyte% 4.3 % (0-10); NRBC Flagged by Analyzer 0 % (0-5); Neutrophil # 6.86 X10^3/uL (2.7-7.7); Neutrophil % 76.4 % (47-70); Platelet Count 195 K/mm3 (150-450); RBC Distribution Width CV 12.9 % (11.6-14.6); RBC Distribution Width SD 42.1 fl (35.1-43.9); Red Blood Count 3.84 M/mm3 (4.2-5.4)
[2024-06-30 12:12] LABS: Syphilis Antibodies Nonreactive (Nonreactive)
[2024-06-30] MEDS: Oxytocin 15 Units/NS 250ml 15 UNITS/250 ML IV.SOLN 2 UNITS IV (13:48)
--- NOTE | 2024-06-30 16:53 | HP.PCM_ITS ---
History and Physical Date of Admission: 06/30/24 Intake Vital Signs 06/02/2508:38 06/25/2509:36 06/30/2509:13 Height 5 ft 3 in 5 ft 3 in 5 ft 3 in Weight: 150 lb BMI 26.5 BP 112/68 Intake Visit Reasons: 38 wk ob Compliance Representative Dealer Required: No Is patient in pain?: No Feel stressed/tense/nervous/anxious/difficulty sleeping: not at all Allergies No Known Allergies Allergy (Verified 06/30/24 11:57) Medications ?Medication ?Instructions ?Recorded ?Confirmed ?Type yqkzuycu-dde-Sk-FA 1 mg 1 tab PO DAILY 06/22/22 History tablet aspirin 81 mg tablet,delayed 81 mg PO DAILY vericose veins 04/14/23 0 06/30/24 History release (Adult Aspirin Regimen) ferrous sulfate 325 mg (65 mg 325 mg PO QDAY anemia 05/05/24 06/30/24 History iron) tablet Last Menstrual Period: 10/03/22 Zika: Zika virus screening: Negative : No PFSH PFSH Medical History Encounter for induction of labor Anemia affecting Oligohydramnios antepartum Oligohydramnios Superficial varicosities Surgical History S/P appendectomy H/O cardiac radiofrequency ablation Family History Father HypertensionGrandfather Cancer Social History adopted: No household members: family housing: house number of children: 3 current occupational status: unemployed current occupation: [employer] pets and animals: Yes pets and animals: fish leisure activities: reading history of recent travel: No sexually active: Yes Smoking Status: Never smoker alcohol intake: never substance use type: does not use well-balanced diet: daily or most days caffeine: Yes (occasional) Type: coffee Number of servings: 1 eating out: rarely or never during the past year weight has: remained stable what type of physical activity do you participate in: none fely/adventism: [facility] seatbelt use: sometimes do you feel safe at home: Yes additional social history: - [place] -works in [employer] for [employer] History 4 Elective abortions 0 Hx Para 3 Spontaneous abortions 0 Hx # Term Pregnancies 2 Ectopic pregnancies 0 Hx # Pregnancies 1 Multiple births 0 # of living children 3 Past Pregnancies Del. Date Name GA/Weeks Outcome Route Bth Weight Gen Labor Lgth Anesthesia Del Locatn Provider FOB 10/17/20 Linda 34 live - 5lbs 8oz Fe male none Arianna 06/22/22 Austin 39 live - full term 7lbs 10z Male Satish Garza 07/11/23 Terrie 40 live - full term 7lbs 6oz Female none [facility] Michelle Wells Delivery Date: 07/11/23 Last Updated by: Jeanette Saleh see problem list for complications. HPI 38 wk ob Details: MARKUS JACKSON is a 23 year old who presents for routine OB visit. OB Visit JIN Calculator Estimated Delivery Date Method Current WG Current Estimate 07/16/24 Ultrasound #1 37w 5d Other Estimates 07/26/24 LMP (Certain) 36w 2d Expected Delivery Route/Plan Labor Preferences- CB/BF classes: no labor support person: Jeff labor intervention preferences: [] pain management options preferred: limited cut cord/dad catch: no : yes PP control planned: discussed discussed possible routes of delivery and associated risks: [] special requests: [] Specific Issue/Plans Covid status: [] Flu vaccine: [] Tdap vaccine: declines Rhogam: not given. Father Rh neg LARC form signed: yes Problem list reviewed and updated with the most current plan of care details and appropriate orders placed. Relevant counseling for the gestational age provided. Continue routine care and follow up unless otherwise noted in visit notes/problem list details Initial Weight: 134 lb Date -?-?-?-?-?-?-?-?-?-?-?-?- EGA Weight BP Urine Prot -?-?-?-?-?-?-?-?-?-?-?-?- Glucose FHR FuHt Pres Dilation -?-?-?-?-?-?-?-?-?-?-?-?- Effaced St Visit Note 02/06/24-?-?-?-?-?-?-?-?-?-?-?-?- 17w 0d 134 lb(+0 oz) 109/65 -?-?-?-?-?-?-?-?-?-?-?-?- 154 -?-?-?-?-?-?-?-?-?-?-?-?- KW- CRL 9.48 cm. stopped in August and has not had a period. KW- CRL 9.48 cm. stopped in August and has not had a period. Agrees to formal dating US in addition to anatomy US. reports feeling flutters. declines NIPT 03/08/24-?-?-?-?-?-?-?-?-?-?-?-?- 21w 3d 138 lb 8 oz(+4 lb 8 oz) 110/66 Negative -?-?-?-?-?-?-?-?-?-?-?-?- Negative 166 -?-?-?-?-?-?-?-?-?-?-?-?- MH-NO VB, LOF. Feeling movement. Anatomy US today 04/22/24-?-?-?-?-?-?-?-?-?-?-?-?- 27w 6d 142 lb 6 oz(+8 lb 6 oz) 98/60 Negative -?-?-?-?-?-?-?-?-?-?-?-?- Negative 148 26 -?-?-?-?-?-?-?-?-?-?-?-?- MH-No VB, lof. Good FM. Has cough/coungesstion. No fevers. Safe meds reviewed. Urgent care if worsens. C/O vaginal itching-exam consistent w/yeast- Monistat encourage. Larc done. Declines tdap 05/05/24-?-?-?-?-?-?-?-?-?-?-?-?- 29w 5d 142 lb 8 oz(+8 lb 8 oz) 106/64 Negative -?-?-?-?-?-?-?-?-?-?-?-?- Negative 145 30 -?-?-?-?-?-?-?-?-?-?-?-?- SM- no vb lof good fm nor eugalr ctx declines rhogam 05/19/24-?-?-?-?-?-?-?-?-?-?-?-?- 31w 5d 144 lb 2 oz(+10 lb 2 oz) 109/71 Negative -?-?-?-?-?-?-?-?-?-?-?-?- Negative 163 31 -?-?-?-?-?-?-?-?-?-?-?-?- JV- no lof, vaginal bleeding, or dec fm. no complaints other than constipation. previous note states that patient declined rhogam. 06/02/24-?-?-?-?-?-?-?-?-?-?-?-?- 33w 5d 145 lb 6 oz(+11 lb 6 oz) 112/68 Negative -?-?-?-?-?-?-?-?-?-?-?-?- Negative 140 31 -?-?-?-?-?-?-?-?-?-?-?-?- SM- co vaginal itching for a week hasn't taken anything no signifciant discharge. good fm culture sent, US ordered 06/16/24-?-?-?-?-?-?-?-?-?-?-?-?- 35w 5d 148 lb 6 oz(+14 lb 6 oz) 101/64 Negative -?-?--?-?-?-?-?-?-?-?-?-?- Negative 139 34.5 Cephalic -?-?-?-?-?-?-?-?-?-?-?-?- JV- AC measuring 15th%, puja 10.1. GBS today. if not delivered by 39 weeks, repeat growth scan. 06/25/24-?-?-?-?-?-?-?-?-?-?-?-?- 37w 0d 148 lb 4 oz(+14 lb 4 oz) 98/58 Negative -?-?-?-?-?-?-?-?-?-?-?-?- Negative 140 33 Cephalic 3-?-?-?-?-?-?-?-?-?- ?-?-?- 70 -1 KW- no vb/lof/ctx. good f m. PUJA done in office- KW- no vb/lof/ctx. good fm. PUJA done in office by - KW- no vb/lof/ctx. good fm. PUJA done in office by SM-10. 06/30/24-?-?-?-?-?-?-?-?-?-?-?-?- 37w 5d 150 lb(+16 lb) 112/68 Negative -?-?-?-?-?-?-?-?-?-?-?-?- Negative 165 -?-?-?-?-?-?-?-?-?-?-?-?- SM- no vb lof goo dfm no reular ctx- repeat PUJA 5 cm recommend IOL now ACOG First Trimester First Trimester: Desire for , Alcohol, Tobacco Cessation, Illicit/Recreational Drug/Substance Use, Intimate Partner Violence, Barriers to care, Anticipated Course of Care, Use of Any medications, Sexual activity, Exercise, Dental Care, Sauna/Hot tub use, Seat Belt use, Childbirth classes/Hospital facilities, Travel, Indications for Ultrasound and Screening for Aneuploidy; Discussed Unstable Housing, Discussed Communication Barriers, Discussed Environmental/Work Hazards, Discussed Toxoplasmosis Precations and Discussed Second Trimester Second Trimester: Signs and Symptoms of Labor, Selecting a care provider, Reproductive Life Planning & Contreception, Care Planning, Depression/Anxiety and Intimate Partner Violence; Discussed Tobacco Cessation Third Trimester Third Trimester: Pain Management Plans, Labor support person(s), Immediate Larc, Circumcision preference, Movement Monitoring, Signs and Symptoms of Preeclampsia, Education and Family Medical Leave or Disability Forms ROS Const Reports system reviewed and no additional complaints, except as documented Card Reports system reviewed and no additional complaints, except as documented Resp Reports system reviewed and no additional complaints, except as documented GI Reports system reviewed and no additional complaints, except as documented and Reports nausea Reports system reviewed and no additional complaints, except as documented Musc Reports system reviewed and no additional complaints, except as documented Exam Const General: cooperative, healthy appearing, comfortable and anxious HENMT Head: normal to inspection Nose: external nose normal Face and sinus: normal facial exam Neck Neck: normal visual inspection, full ROM and no lymphadenopathy Thyroid: thyroid normal Chest Chest palpation & inspection: normal inspection of the chest Resp Effort & Inspection: normal respiratory effort GI Inspection: normal to inspection Palpation: soft and other (gravid uterus) Other: vertex and appropriate size for gestational age Other: Cervical Exam: Extrem General: pedal edema Results POC Urinalysis 2 Dip (Clinic) Office Urine Glucose Negative Last Edit by Emerald Hay on 06/30/24 10:20 Office Urine Protein Negative Last Edit by Emerald Hay on 06/30/24 10:20 Coding Level of Care Code OB Routine Diagnoses Short interval between pregnancies affecting in third trimester, antepartum O09.893 History of oligohydramnios in prior , currently O09.299 Marginal insertion of umbilical cord Rh negative status during in second trimester O26.892; Z67.91 Trimester: second trimester Supervision of high risk in second trimester O09.92 Trimester: second trimester 37 weeks gestation of Z3A.37 Weeks of gestation: 37 weeks Varicose veins of both lower extremities, unspecified whether complicated I83.93 Varicose vein complication: unspecified Oligohydramnios in third trimester O41.03X0 Assessment and Plan Assessment and Plan (1) Short interval between pregnancies affecting in third trimester, antepartum: Status: Acute (2) History of oligohydramnios in prior , currently : Status: Acute Comment: check 36 week growth US (3) Marginal insertion of umbilical cord: Status: Acute (4) Rh negative status during : Status: Acute Qualifiers: Trimester: second trimester Qualified Code(s): O26.892 - Other specified related conditions, second trimester; Z67.91 - Unspecified blood type, Rh negative Comment: Rhogam @ 28 weeks & PRN Bleeding; States is negative. Needs to bring in confirmation. She currently declines rhogam. States we should have his record. (5) Supervision of high-risk : Status: Acute Qualifiers: Trimester: second trimester Qualified Code(s): O09.92 - Supervision of high risk , unspecified, second trimester Comment: PRR, , JIN 07/26/24?, PC Austin Mckeon Amy, Russell is O negative. (6) : Status: Acute Qualifiers: Weeks of gestation: 37 weeks Qualified Code(s): Z3A.37 - 37 weeks g estation of Comment: normal anatomy, declined NIPT & Carrier testing; AFP (7) Varicose veins of both lower extremities: Status: Acute Qualifiers: Varicose vein complication: unspecified Qualified Code(s): I83.93 - Asymptomatic varicose veins of bilateral lower extremities (8) Oligohydramnios in third trimester: Status: Acute Orders: Orders Patient presents IOL, plan management for with pitocin/AROM. Pain management: prefers minimal intervention. GBS negative. Management of any complications: oligo I have reviewed the [facility] and made any clinically relevant updates.
[2024-06-30] MEDS: Oxytocin 10 UNITS/ML Vial IM (21:09)
--- NOTE | 2024-06-30 21:32 | EX.PCM.OBVAG ---
Assessment & Plan (1) Oligohydramnios in third trimester: (2) Short interval between pregnancies affecting in third trimester, antepartum: (3) History of oligohydramnios in prior , currently : COMMENT: check 36 week growth US (4) Marginal insertion of umbilical cord: (5) Rh negative status during : QUALIFIERS: Trimester: second trimester Qualified Code(s): O26.892 - Other specified related conditions, second trimester; Z67.91 - Unspecified blood type, Rh negative COMMENT: Rhogam @ 28 weeks & PRN Bleeding; States is negative. Needs to bring in confirmation. She currently declines rhogam. States we should have his record. (6) Supervision of high-risk : QUALIFIERS: Trimester: second trimester Qualified Code(s): O09.92 - Supervision of high risk , unspecified, second trimester COMMENT: PRR, , JIN 07/26/24?, PC Austin Mckeon, Terrie, Russell is O negative. (7) : QUALIFIERS: Weeks of gestation: 37 weeks Qualified Code(s): Z3A.37 - 37 weeks gestation of COMMENT: normal anatomy, declined NIPT & Carrier testing; AFP (8) Varicose veins of both lower extremities: QUALIFIERS: Varicose vein complication: unspecified Qualified Code(s): I83.93 - Asymptomatic varicose veins of bilateral lower extremities (9) Vaginal delivery: COMMENT: SM IOL Oligo 37 Maternal Data Information JIN Calculator Estimated Delivery Date Method Current WG Current Estimate 07/16/24 Ultrasound #1 37w 5d Other Estimates 07/26/24 LMP (Certain) 36w 2d Vaginal Delivery Maternal Presentation Maternal Presentation: see assessment and plan Vaginal Delivery Information Procedure Performed: Spontaneous Vaginal Delivery Surgeon/Practitioner: Alyssa Schafer Date of Procedure: 06/30/24 Pre-Procedure Diagnosis: see assessment and plan Post-Procedure Diagnosis: same Type of anesthesia: Epidural Estimated Blood Loss: 200 Findings Description of procedure: Patient began pushing and delivered the head in the eddie presentation. The head was delivered atraumatically . The anterior and posterior shoulders delivered without complication followed by the rest of the and the infant was placed on the maternal abdomen. Delayed cord clamping was employed for approximately 60 seconds. Cord was clamped and cut and gentle traction was applied to the cord and the placenta delivered spontaneously immediately following it was noted to be intact with three-vessel cord. The perineum and vagina were inspected and noted to have no laceration. EBL was 200. Patient and tolerated delivery well. Presentation: Vertex Placental Delivery Description: Spontaneous Specimen collected: Yes Description of specimen(s) removed: placenta Agricultural Scientist paint crew supervisor: No Post Vaginal Deli Medications given after delivery: Other (pitocin) Complication Complications: No Multi Select Codes Urinary/Genital Urinary/Genital CPT Codes: 87552 Vaginal Delivery [facility]
--- NOTE | 2024-06-30 21:33 | PCM.DC ---
Discharge Instructions Diet Discharge Diet: No restrictions DC O2, CPAP, BIPAP needs Home O2 Discharge instructions: No Dressing / Incision Discharge Activity: Return to Normal Activity, May Not Drive (while taking narcotic pain medications.) and May Shower May resume sexual activity in: 4-6 weeks Dressing / Incision Call your doctor if your incision/area has: Continuous Slow Oozing, Sudden Increased Bleeding, Increased Pain/ Swelling, Increased Redness and Foul Smelling Discharge Follow Up Care Please Follow Up With: Alyssa Schafer MD When: Call [phone] to make an appointment with your doctor in 6 weeks. If you had elevated blood pressure or 4th degree laceration, you will need to be seen in 2 weeks. Test Results: Test results from this visit will be discussed in further detail at your follow-up appointment, if applicable. Discharge Plan Admission Admit Date/Time: 06/30/24 10:59 Attending Provider: Alyssa Schafer Primary Care Provider: Yennifer Samson NP Discharge Orders/Prescriptions Prescriptions: No Action aspirin [Adult Aspirin Regimen] 81 mg tablet,delayed release (DR/EC) 81 mg PO DAILY ferrous sulfate 325 mg (65 mg iron) tablet 325 mg PO QDAY 1 mg Tablet 1 tab PO DAILY Referrals / Follow Up: Yennifer Samson DRIVER'S EDUCATION INSTRUCTOR, DRIVER'S EDUCATION INSTRUCTOR-C [Primary Care Provider] - Disposition Disposition (needs filled in before D/C Order can be placed): Home, Self Care
[2024-07-01] VITALS (11 sets, daily range): BP systolic 106–125; BP diastolic 55–67; PULSE 58–120; RESP 14–18; TEMP 36.6–36.8; O2SAT 79–99
--- NOTE | 2024-07-01 07:35 | PCM.PN.OB ---
Subjective Subjective Patient doing well without complaints. Tolerating PO. Ambulating and voiding without difficulty. Feeding well. Denies chest pain, shortness of breath, calf pain/swelling, fevers, chills, lightheadedness. Objective Data Objective Data Vital Signs: Vital Signs Temp Pulse Resp BP Pulse Ox O2 Del Method 97.8 F 63 16 112/55 L 99 Room Air 07/01/24 03:53 07/01/24 03:53 07/01/24 03:53 07/01/24 03:53 07/01/24 03:53 07/01/24 03:53 Oxygen Delivery Method Room Air Weight: 149 lb 2 oz Body Mass Index (BMI) 26.4 Intake & Output: Intake and Output for Last 24 Hours 06/29/24 06/30/24 07/01/24 23:59 23:59 23:59 Intake Total 550.93 / 550.93 Output Total 500 / 500 800 / 800 Balance 50.93 / 50.93 -800 / -800 Lab / Micro Data 06/30/24 11:25 Labs: Laboratory Results - last 24 hr 06/30/24 11:25: WBC 9.0, RBC 3.84 L, Hgb 12.0, Hct 34.5 L, MCV 89.8, MCH 31.3, MCHC 34.8, RDW Std Deviation 42.1, RDW Coeff of Oz 12.9, Plt Count 195, MPV 10.7, Immature Gran % (Auto) 1.100 H, Neut % (Auto) 76.4 H, Lymph % (Auto) 17.0 L, [place] % (Auto) 4.3, Eos % (Auto) 0.9, Baso % (Auto) 0.3, Absolute Neuts (auto) 6.9, Absolute Lymphs (auto) 1.53, Nucleated RBC % 0, Syphilis Total Ab Nonreactive, Blood Type A NEGATIVE, Antibody Screen NEGATIVE Physical Exam Const alert and oriented x3 HEENT normocephalic Eyes PERRL Neck full ROM Resp normal respiratory effort GI soft to palpation GI Narrative: FF below U Assessment & Plan (1) Vaginal delivery: COMMENT: SM IOL Oligo 37 (2) Rh negative status during : QUALIFIERS: Trimester: second trimester Qualified Code(s): O26.892 - Other specified related conditions, second trimester; Z67.91 - Unspecified blood type, Rh negative COMMENT: Rhogam @ 28 weeks & PRN Bleeding; States is negative. Needs to bring in confirmation. She currently declines rhogam. States we should have his record. PLAN: Plan s/p PPD # 1 1. routine post delivery care 2. breast feeding- support given 3. rh negative, also negative. Rhogam not needed 4. rubella immune
[2024-07-01] MEDS: Acetaminophen 500 MG Tablet 1000 MG PO ×2 (07:46→13:40)
[2024-07-02 02:00] VITALS: BP 111/58; PULSE 71; RESP 16; TEMP 36.7; O2SAT 98
[2024-07-02 08:40] VITALS: BP 100/63; RESP 16; TEMP 36.6; O2SAT 99
--- NOTE | 2024-07-02 08:42 | PCM.PN.CNM ---
Subjective Subjective Patient doing well without complaints. Tolerating PO. Ambulating and voiding without difficulty. Feeding well. Denies chest pain, shortness of breath, calf pain/swelling, fevers, chills, lightheadedness. Objective Data Objective Data Vital Signs: Vital Signs Temp Pulse Resp BP Pulse Ox O2 Del Method 98.0 F 71 16 111/58 L 98 Room Air 07/02/24 02:00 07/02/24 02:00 07/02/24 02:00 07/02/24 02:00 07/02/24 02:00 07/02/24 02:00 Oxygen Delivery Method Room Air Weight: 149 lb 2 oz Body Mass Index (BMI) 26.4 Intake & Output: Intake and Output for Last 24 Hours 06/30/24 07/01/24 07/02/24 23:59 23:59 23:59 Intake Total 550.93 / 550.93 Output Total 500 / 500 800 / 800 Balance 50.93 / 50.93 -800 / -800 Lab / Micro Data 06/30/24 11:25 Physical Exam Const alert and oriented x3 HEENT normocephalic Eyes PERRL Neck full ROM Resp normal respiratory effort GI soft to palpation GI Narrative: FF below U Assessment & Plan (1) Vaginal delivery: COMMENT: SM IOL Oligo 37 PLAN: s/p PPD # 2 1. routine post delivery care 2. breast feeding- support given 3. rh neg- fob also neg 4. rubella immune 5. d/c home today
--- NOTE | 2024-07-02 08:43 | PCM.DC.SUM ---
Providers Date of Admission: 06/30/24 Primary Care Physician: Yennifer Samson, HRIS ANALYST-C Reason For Visit: VAGINAL DELIVERY Diagnosis Discharge Diagnosis (1) Vaginal delivery: Status: Acute Code(s): O80 - Encounter for full-term uncomplicated delivery Plan: s/p PPD # 2 1. routine post delivery care 2. breast feeding- support given 3. rh neg- fob also neg 4. rubella immune 5. d/c home today Medications at Discharge Home Medications osutbggm-vit-Xd-FA 1 mg tablet 1 tab PO DAILY 06/22/22 aspirin 81 mg tablet,delayed release (Adult Aspirin Regimen) 81 mg PO DAILY vericose veins 04/14/23 ferrous sulfate 325 mg (65 mg iron) tablet 325 mg PO QDAY anemia 05/05/24 Hospital Course Operations None Procedures None Summary of Care Provided Minutes Spent on Discharge: 10 Hospital Course: presented for IOL for oligio, resulting in with stand pp course. Weight / BMI Weight Weight: 149 lb 2 oz Body Mass Index (BMI) 26.4 ABG / Lab / Microbiology Data 06/30/24 11:25 D/C Instructions Discharge Diet: No restrictions May resume sexual activity in: 4-6 weeks Call your doctor if your incision/area has: Continuous Slow Oozing, Sudden Increased Bleeding, Increased Pain/ Swelling, Increased Redness and Foul Smelling Discharge DC O2, CPAP, BIPAP Needs Home O2 Discharge instructions: No Please Follow Up With: Alyssa Schafer MD When: Call [phone] to make an appointment with your doctor in 6 weeks. If you had elevated blood pressure or 4th degree laceration, you will need to be seen in 2 weeks. Meaningful Use Info Meaningful Use Meaningful Use Diagnoses (Choose all that apply): None applicable Ischemic Stroke Statin Dosing Therapy Reference: STATIN DOSE THERAPY REFERENCE: * Patients > 75 years receive moderate or high dose statin therapy. * Patients 75 years or YOUNGER should receive HIGH intensity statin dose unless contraindicated. You will be required to document reason for non-treatment if statin daily dose does not meet guidelines. HIGH DOSE STATIN THERAPY DAILY Atorvastatin > than or = to 40 mg Rosuvastatin > than or = to 20 mg Amlodipine + Atorvastatin > than or = to 2.5/40 mg Ezetimibe + Simvastatin 10/80 mg Simvastatin 80mg Discharge Plan Admission Admit Date/Time: 06/30/24 10:59 Attending Provider: Alyssa Schafer Primary Care Provider: Yennifer Samson NP Discharge Orders/Prescriptions Prescriptions: No Action aspirin [Adult Aspirin Regimen] 81 mg tablet,delayed release (DR/EC) 81 mg PO DAILY ferrous sulfate 325 mg (65 mg iron) tablet 325 mg PO QDAY 1 mg Tablet 1 tab PO DAILY Referrals / Follow Up: Yennifer Samson HRIS ANALYST, HRIS ANALYST-C [Primary Care Provider] - Disposition Disposition (needs filled in before D/C Order can be placed): Home, Self Care
[2024-07-02 08:46] VITALS: BP 100/63; PULSE 75
--- NOTE | 2024-07-02 09:49 | VDLE_ITS ---
Reason For Study Reason For Study: Left leg swelling Procedure LEFT This is a venous duplex using B-mode, color flow and CFV is compressible, spontaneous, phasic, competent, spectral Doppler. and demonstrates normal augmentation. Exam performed portable in patient room. FV is compressible, spontaneous, phasic, competent A preliminary report was called and/or faxed to and demonstrates normal augmentation. Yazmin RIVERA. POP V is compressible, spontaneous, phasic, competent and demonstrates normal augmentation. T/P Trunk is compressible. PTV is compressible. LT PerV is compressible. Acute superficial vein thrombosis is noted in the left GSV distal thigh-knee. Thrombus filled varicose veins noted in the left distal thigh to proximal calf. VL/Venous Duplex US, Unilateral Interpretation Summary Deep veins of the left lower extremity are patent and compressible segmentally. There is no evidence of left lower extremity deep vein thrombosis. Valvular competence appears intact within the p roximal deep venous system on the left . Acute superficial thrombophlebitis is noted in the left great saphenous vein fr om the distal thigh to the knee, as well as in superficial varicosities in the left distal thigh and proximal calf. Ordering Physician: Michelle Oreilly Referring Physician: Yennifer Samson Performed By: Julia Chaidez RVT
--- NOTE | 2024-07-02 11:11 | PCM.PN.CNM ---
Subjective Subjective left knee warm to touch and uncomfortable. 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 VQ scan ordered and demonstrated same SVT. -LDA , warm compress -if worsens to follow up with vascular consulted with JV who concurs no heparin, and management above.
[2024-07-02 11:30] VITALS: BP 117/66; PULSE 77; RESP 16; TEMP 36.6; O2SAT 98
[2024-07-02 11:32] VITALS: BP 117/66; PULSE 75; PULSE 77; O2SAT 98
--- NOTE | 2024-07-02 14:29 | NURSING ---
0800- Behind left knee, reddened, warm to touch and slight edema. Varicosities noted.
== END 2024-07-02 13:30 | disposition home or self-care (01) | DRG 807 ==
PROVIDERS: Admitting Provider Obstetrics & Gynecology; PCP Nurse Practitioner Family; Referring Provider Obstetrics & Gynecology; Visit Provider Obstetrics & Gynecology
DX: O41.03X0 Oligohydramnios, third trimester, not applicable or unspecified (principal); Z37.0 Single live birth; I83.93 Asymptomatic varicose veins of bilateral lower extremities; O26.893 Other specified pregnancy related conditions, third trimester; O99.02 Anemia complicating childbirth; Z67.91 Unspecified blood type, Rh negative; Z3A.37 37 weeks gestation of pregnancy; Z79.82 Long term (current) use of aspirin; Z87.59 Personal history of other complications of pregnancy, childbirth and the puerperium
CPT/HCPCS: 59025; 59050; 85025; 86780; 86850; 86900; 86901; 93971; 99221; G0378

== ENCOUNTER → 2024-08-12 | Outpatient (CLI) | payer SELFPAY | END | disposition home or self-care (01) | LOC: LABSPEC 14:06 | PROVIDERS: PCP Nurse Practitioner Family; Referring Provider Advanced Practice Midwife; Visit Provider Advanced Practice Midwife | DX: Z12.4 Encounter for screening for malignant neoplasm of cervix (principal) | CPT/HCPCS: 88175; G0145 ==